=== PATIENT | male | born 1950 | race Caucasian/White ===

== ENCOUNTER → 2018-02-11 10:07 | Outpatient (CLI) | payer MEDICARE, SELFPAY ==
[2018-02-11 11:43] LABS: Hemoglobin A1c 8.2 % (4.2-6.3)
== END ==
PROVIDERS: Nurse Practitioner Family; Family Provider Family Medicine; PCP Family Medicine; Visit Provider Family Medicine
DX: E11.9 Type 2 diabetes mellitus without complications (principal)
CPT/HCPCS: 36415; 83036

== ENCOUNTER → 2018-05-05 11:06 | Outpatient (CLI) | payer MEDICARE, SELFPAY ==
[2018-05-05 12:29] LABS: Hemoglobin A1c 7.9 % (4.2-6.3)
== END ==
PROVIDERS: Family Provider Family Medicine; PCP Family Medicine; Visit Provider Family Medicine
DX: E11.9 Type 2 diabetes mellitus without complications (principal)
CPT/HCPCS: 36415; 83036

== ENCOUNTER → 2018-06-03 11:15 | Outpatient (CLI) | payer MEDICARE, SELFPAY ==
--- NOTE | 2018-06-02 11:40 | LES_PTH ---
PATIENT: KELSEY YOUSSEF LOC: [facility] U#:[id number] AGE/SX: 75/M ROOM: RE06/03/[address]: Dr. Behzad Pierce, : 1950 BED: DIS: SPEC #: [id number] RECD: 06/03/18 11:23 STATUS: JOSHUA BROOKS #: [id number] CHAD: 06/02/18 11:[address]: Behzad Pierce DEPT: SURGICAL PATHOLOGY RECD BY: Brenden Lemon Tissues: Skin of forearm, NOS Procedures: Surgery Specimen Level IV HEADER OPERATION: Shave biopsy PRE-OP DIAGNOSIS: Rule out basal cell cancer, squamous cell cancer TISSUE SUBMITTED: Left forearm MICROSCOPIC DIAGNOSIS Left forearm skin lesion, shave biopsy: Basal cell carcinoma, extending up to the deep margin of the specimen. Mild actinic keratosis and solar elastosis. SJ:gato 06/04/18 MICROSCOPIC DESCRIPTION Slides are reviewed. GROSS DESCRIPTION Received is one container labeled with the patient's name and not further designated. The specimen consists of a shave biopsy of hung-white skin measuring 1.3 x 0.7 x 0.1 cm. The specimen is inked and submitted entirely in one cassette. It will be serially sectioned at the time of embedding. / SJ:rg 06/03/18 TC:0 [facility]: [id number]
== END ==
PROVIDERS: Family Provider Family Medicine; PCP Family Medicine; Visit Provider Family Medicine
DX: C44.90 Unspecified malignant neoplasm of skin, unspecified (principal)
CPT/HCPCS: 88305

== ENCOUNTER → 2019-02-02 09:00 | Outpatient (CLI) | payer MEDICARE, SELFPAY ==
[2019-02-01 14:24] VITALS: BMI 30.6
[2019-02-02 12:40] LABS: Hematocrit 45.4 % (40-54); Mean Corpuscular Hgb 30.6 pg (27.0-32.0); Mean Corpuscular Volume 92.7 fL (80-94); Mean Platelet Vol. 11.7 fl (6.2-12.0); Platelet Count 277 K/mm3 (150-450); RBC Distribution Width CV 13.1 % (11.6-14.6); RBC Distribution Width SD 43.6 fl (35.1-43.9); White Blood Count 7.8 K/mm3 (4.4-11.0)
[2019-02-02 12:45] LABS: Scan Indicated on CBC? Y/N NO
[2019-02-02 13:19] LABS: ALB/GLOB Ratio 1.1 RATIO (0.9-2.4); AST(SGOT) 9 U/L (15-37); Alanine Aminotransfer ALT/SGPT 26 U/L (16-61); Alkaline Phosphatase 62 U/L (45-117); Anion Gap 3 (5-15); BUN 17 mg/dL (7-18); BUN/Creat Ratio 18.9 RATIO (10-20); Calcium,Total 8.7 mg/dL (8.5-10.1); Chloride 101 mmol/L (98-107); Cholesterol 142 mg/dL (200); EST Glomerular Filtration Rate 89 mL/min (>60); Est Glom Filt Rate - Afr Amer 107 mL/min (>60); Globulin 3.5 g/dL (2.2-4.2); Glucose 185 mg/dL (74-106); High Density Lipoprotein 26 mg/dL; Potassium 4.2 mmol/L (3.5-5.1); Protein, Total 7.5 g/dL (6.4-8.2); Sodium Level 134 mmol/L (136-145); Triglycerides 203 mg/dL; Very Low Density Lipoprotein 41 mg/dL (5-40)
== END ==
PROVIDERS: Family Provider Family Medicine; PCP Family Medicine; Visit Provider Family Medicine
DX: I10 Essential (primary) hypertension (principal)
CPT/HCPCS: 36415; 80053; 80061; 85027

== ENCOUNTER → 2020-01-31 10:29 | Outpatient (CLI) | payer MEDICARE, SELFPAY ==
[2020-01-31 10:04] VITALS: BMI 30.2
[2020-01-31 12:41] LABS: ALB/GLOB Ratio 1.1 RATIO (0.9-2.4); AST(SGOT) 18 U/L (15-37); Alanine Aminotransfer ALT/SGPT 32 U/L (16-61); Albumin, Serum 4.2 g/dL (3.2-5.0); Alkaline Phosphatase 46 U/L (45-117); Anion Gap 5 (5-15); BUN 18 mg/dL (7-18); BUN/Creat Ratio 20.6 RATIO (10-20); Calcium,Total 9.5 mg/dL (8.5-10.1); Chloride 103 mmol/L (98-107); Cholesterol 186 mg/dL (200); Creatinine, Serum 0.87 mg/dL (0.70-1.30); EST Glomerular Filtration Rate 91 mL/min (>60); Est Glom Filt Rate - Afr Amer 110 mL/min (>60); Globulin 3.7 g/dL (2.2-4.2); Glucose 109 mg/dL (74-106); High Density Lipoprotein 29 mg/dL; Microalbumin,Random Urine 21.7 mg/L (NO RANGE EST.); Microalbumin:Creatinine Ratio 34.6 mg/g CRE (<30 mg/g CRE); Potassium 4.4 mmol/L (3.5-5.1); Protein, Total 7.9 g/dL (6.4-8.2); Sodium Level 138 mmol/L (136-145); Triglycerides 347 mg/dL; Very Low Density Lipoprotein 69 mg/dL (5-40)
== END ==
PROVIDERS: PCP Family Medicine; Referring Provider Family Medicine; Visit Provider Family Medicine
DX: E78.2 Mixed hyperlipidemia (principal); E11.9 Type 2 diabetes mellitus without complications
CPT/HCPCS: 36415; 80053; 80061; 82043; 82570

== ENCOUNTER → 2020-02-02 10:41 | Outpatient (CLI) | payer MEDICARE, SELFPAY ==
[2020-01-31 10:04] VITALS: BMI 30.2
--- NOTE | 2020-02-02 10:42 | RAD_ITS ---
STUDY: X-RAY - LEFT KNEE REASON FOR EXAM: Male, 69 years old. CHRONIC LEFT KNEE PAIN TECHNIQUE: 4 view(s) of the knee. COMPARISON: None. FINDINGS: The patient is status post medial hemiarthroplasty. Patient is status post medial hemiarthroplasty. Normal proximal tibiofibular articulation. Normal medial femorotibial compartment. Normal lateral femorotibial compartment. 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 Small joint effusion. RAD/Knee 4 or More Views IMPRESSION: Degenerative arthrosis. Status post medial hemiarthroplasty. Electronically Signed: Eliu Eduardo, at 15:58 EDT , Service support ,
== END ==
PROVIDERS: PCP Family Medicine; Referring Provider Family Medicine; Visit Provider Family Medicine
DX: M25.562 Pain in left knee (principal); G89.29 Other chronic pain
CPT/HCPCS: 73564

== ENCOUNTER → 2021-05-08 10:13 | Outpatient (CLI) | payer MEDICARE, SELFPAY ==
[2021-05-08 09:52] VITALS: BMI 30.1
[2021-05-08 12:28] LABS: Absolute Lymphocyte Count 2.02 X10^3/uL (0.83-4.51); Absolute Neutrophil Count 4.2 X10^3/uL (2.0-7.7); Basophil# 0.09 X10^3/uL; Basophil% 1.3 % (0-1); Eosinophils% 2.8 % (0-5); Hematocrit 45.9 % (40-54); Hemoglobin 14.6 g/dL (13.0-16.5); Lymphocyte # 2.02 X10^3/ul (0.83-4.51); Lymphocyte % 28.5 % (19-41); Mean Corp Hgb Conc 31.8 g/dL (32-36); Mean Corpuscular Hgb 30.1 pg (27.0-32.0); Mean Corpuscular Volume 94.6 fL (80-94); Mean Platelet Vol. 11.3 fl (6.2-12.0); Monocyte# 0.59 X10^3/uL; Monocyte% 8.3 % (0-10); NRBC Flagged by Analyzer 0 % (0-5); Neutrophil # 4.17 X10^3/uL (2.7-7.7); Platelet Count 273 K/mm3 (150-450); RBC Distribution Width CV 13.1 % (11.6-14.6); Red Blood Count 4.85 M/mm3 (4.6-6.2); White Blood Count 7.1 K/mm3 (4.4-11.0)
[2021-05-08 12:47] LABS: ALB/GLOB Ratio 1.2 RATIO (0.9-2.4); AST(SGOT) 11 U/L (15-37); Alanine Aminotransfer ALT/SGPT 21 U/L (16-61); Albumin, Serum 4.1 g/dL (3.2-5.0); Alkaline Phosphatase 52 U/L (45-117); Anion Gap 2 (5-15); BUN 12 mg/dL (7-18); BUN/Creat Ratio 12.9 RATIO (10-20); Calcium,Total 9.2 mg/dL (8.5-10.1); Chloride 103 mmol/L (98-107); Cholesterol 169 mg/dL (200); Creatinine, Serum 0.93 mg/dL (0.70-1.30); EST Glomerular Filtration Rate 85 mL/min (>60); Est Glom Filt Rate - Afr Amer 103 mL/min (>60); Globulin 3.5 g/dL (2.2-4.2); Glucose 92 mg/dL (74-106); Hemoglobin A1c 6.6 % (3.8-5.6); High Density Lipoprotein 31 mg/dL; Potassium 4.9 mmol/L (3.5-5.1); Protein, Total 7.6 g/dL (6.4-8.2); Sodium Level 140 mmol/L (136-145); Triglycerides 151 mg/dL; Very Low Density Lipoprotein 30 mg/dL (5-40)
== END ==
PROVIDERS: PCP Family Medicine; Referring Provider Physician Assistant; Visit Provider Physician Assistant
DX: E11.9 Type 2 diabetes mellitus without complications (principal); Z79.4 Long term (current) use of insulin
CPT/HCPCS: 36415; 80053; 80061; 83036; 85025

== ENCOUNTER 2022-01-22 09:56 | Outpatient (CLI) | payer MEDICARE, SELFPAY ==
[2022-01-22 12:26] LABS: ALB/GLOB Ratio 1.1 RATIO (0.9-2.4); AST(SGOT) 12 U/L (15-37); Alanine Aminotransfer ALT/SGPT 23 U/L (16-61); Alkaline Phosphatase 64 U/L (45-117); Anion Gap 7 (5-15); BUN 17 mg/dL (7-18); BUN/Creat Ratio 15.5 RATIO (10-20); Chloride 98 mmol/L (98-107); EST Glomerular Filtration Rate 70 mL/min (>60); Est Glom Filt Rate - Afr Amer 84 mL/min (>60); Globulin 3.8 g/dL (2.2-4.2); Glucose 186 mg/dL (74-106); Potassium 3.9 mmol/L (3.5-5.1); Protein, Total 7.8 g/dL (6.4-8.2); Sodium Level 135 mmol/L (136-145)
[2022-01-22 12:33] LABS: Hemoglobin A1c 9.2 % (3.8-5.6)
== END 2022-01-22 23:59 | disposition home or self-care (01) ==
LOC: BIMLAB 09:59
PROVIDERS: PCP Family Medicine; Referring Provider Family Medicine; Visit Provider Family Medicine
DX: E11.9 Type 2 diabetes mellitus without complications (principal); Z79.4 Long term (current) use of insulin
CPT/HCPCS: 36415; 80053; 83036

== ENCOUNTER → 2023-04-22 | Outpatient (CLI) | payer MEDICARE, SELFPAY ==
[2023-04-22 17:14] LABS: ALB/GLOB Ratio 1.2 RATIO (0.9-2.4); AST(SGOT) 9 U/L (15-37); Alanine Aminotransfer ALT/SGPT 21 U/L (16-61); Albumin, Serum 4.1 g/dL (3.2-5.0); Alkaline Phosphatase 71 U/L (45-117); Anion Gap 5 (5-15); BUN 13 mg/dL (7-18); BUN/Creat Ratio 13.5 RATIO (10-20); Calcium,Total 9.2 mg/dL (8.5-10.1); Chloride 100 mmol/L (98-107); Cholesterol 162 mg/dL (200); Creatinine, Serum 0.96 mg/dL (0.70-1.30); EST Glomerular Filtration Rate 81 mL/min (>60); Est Glom Filt Rate - Afr Amer 98 mL/min (>60); Globulin 3.4 g/dL (2.2-4.2); Glucose 269 mg/dL (74-106); High Density Lipoprotein 29 mg/dL; Potassium 4.4 mmol/L (3.5-5.1); Protein, Total 7.5 g/dL (6.4-8.2); Sodium Level 135 mmol/L (136-145); Triglycerides 323 mg/dL; Very Low Density Lipoprotein 65 mg/dL (5-40)
[2023-04-22 17:47] LABS: Hemoglobin A1c 10.3 % (3.8-5.6)
== END | disposition home or self-care (01) ==
LOC: BIMLAB 15:42
PROVIDERS: PCP Family Medicine; Visit Provider Family Medicine
DX: E11.9 Type 2 diabetes mellitus without complications (principal); Z79.4 Long term (current) use of insulin
CPT/HCPCS: 36415; 80053; 80061; 83036

== ENCOUNTER 2023-06-21 09:10 | Inpatient (IN) | payer MEDICARE, SELFPAY ==
[2023-06-21] VITALS (12 sets, daily range): BP systolic 119–162; BP diastolic 55–107; PULSE 90–109; RESP 18–24; TEMP 35.7–37.1; O2SAT 90–97; BMI 29.2; BMI 28.0
--- NOTE | 2023-06-21 09:42 | EKG12_ITS ---
Test Reason : SOB Blood Pressure : / mmHG Vent. Rate : 087 BPM Atrial Rate : 087 BPM P-R Int : 142 ms QRS Dur : 096 ms QT Int : 344 ms P-R-T Axes : 016 -33 036 degrees QTc Int : 413 ms Normal sinus rhythm Left axis deviation Abnormal ECG Confirmed by OLIVIA ROLDAN, RAMON ([id number]), editor newspaper YEMI BIGGS ([id number]) on 06/22/2023 1:26:52 PM Referred By: Confirmed By:RAMON BAKER MD
[2023-06-21] MEDS: Ipratropium/Albuterol Sulfate 3 ML AMPUL.NEB INHALATION ×3 (09:54→19:10)
[2023-06-21] MEDS: Albuterol 2.5 MG/3 ML VIAL.NEB. INHALATION (09:54)
[2023-06-21 10:10] LABS: Absolute Lymphocyte Count 2.17 X10^3/uL (0.83-4.51); Basophil# 0.14 X10^3/uL; Basophil% 1.7 % (0-1); Eosinophil# 0.29 X10^3/uL; Eosinophils% 3.5 % (0-5); Hematocrit 42.2 % (40-54); Hemoglobin 14.1 g/dL (13.0-16.5); Lymphocyte # 2.17 X10^3/ul (0.83-4.51); Lymphocyte % 26.3 % (19-41); Mean Corp Hgb Conc 33.4 g/dL (32-36); Mean Corpuscular Hgb 30.7 pg (27.0-32.0); Mean Corpuscular Volume 91.7 fL (80-94); Mean Platelet Vol. 10.6 fl (6.2-12.0); Monocyte# 0.64 X10^3/uL; Monocyte% 7.8 % (0-10); NRBC Flagged by Analyzer 0 % (0-5); Neutrophil # 4.99 X10^3/uL (2.7-7.7); Neutrophil % 60.5 % (47-70); Platelet Count 279 K/mm3 (150-450); RBC Distribution Width CV 12.4 % (11.6-14.6); RBC Distribution Width SD 41.3 fl (35.1-43.9); White Blood Count 8.3 K/mm3 (4.4-11.0)
--- NOTE | 2023-06-21 10:11 | RAD_ITS ---
STUDY: X-RAY CHEST REASON FOR EXAM: Male, 73 years old. Fever and cough TECHNIQUE: 2 AP portable views COMPARISON: None. FINDINGS: EKG leads overlie the chest The lungs are clear and expanded. There is no demonstrated pleural abnormality. Normal size heart. Normal mediastinum and marv. Normal visualized pulmonary arteries. Normal visualized aortic arch and descending thoracic aorta. There are diffuse degenerative changes of the visualized thoracic spine. Normal visualized ribs, clavicles, and shoulders. There is no demonstrated abnormality of the visualized soft tissue structures of the upper abdomen. RAD/Chest 1 View (Portable) IMPRESSION: No acute pulmonary process Electronically Signed: Riley Sams MD at 10:25 EDT ,
[2023-06-21 10:18] LABS: D-Dimer Quantitative (DVT/PE) 0.36 FEU/ug/m (0.27-0.49)
[2023-06-21 10:19] LABS: Anion Gap 5 (5-15); BUN 13 mg/dL (7-18); BUN/Creat Ratio 12.5 RATIO (10-20); Calcium,Total 8.9 mg/dL (8.5-10.1); Chloride 102 mmol/L (98-107); Creatinine, Serum 1.04 mg/dL (0.70-1.30); EST Glomerular Filtration Rate 74 mL/min (>60); Est Glom Filt Rate - Afr Amer 90 mL/min (>60); Estimated Creatinine Clearance 67.36 ml/min; Glucose 339 mg/dL (74-106); Potassium 4.1 mmol/L (3.5-5.1); Sodium Level 136 mmol/L (136-145)
[2023-06-21] MEDS: MethylPREDNISolone 125 MG/2 ML Vial IV (10:19)
--- NOTE | 2023-06-21 10:34 | ED.VIS.DYS ---
HPI History of Present Illness Chief Complaint: Shortness of Breath Narrative Narrative: 73-year-old male with history of tobacco use presenting with shortness of breath for 3 days. He states he really does not smoke that much anymore. He states he is unsure if he was diagnosed with COPD. He used to have albuterol at home but does not. He still smokes occasionally. He is also been cleaning out his basement which is very trav. Patient states that his shortness of breath is worse than usual. He states that for the last 3 days when he lays down to sleep he will wake up and just a few minutes in a panic. He states he has not had a good night sleep. No history of sleep apnea. No history of CHF. He is not having fever or chills. [facility] Medical History Combined hyperlipidemia Emphysema of lung Hypertension Neuropathy Skin cancer Type 2 diabetes mellitus Home Medications venlafaxine 75 mg capsule,extended release 24 hr 75 mg PO QDAY #90 caps 05/29/22 [Rx Last Taken Unknown] lisinopril 10 mg-hydrochlorothiazide 12.5 mg tablet 1 tab PO .one daily #90 tabs 07/30/22 [Rx Last Taken Unknown] metformin 500 mg tablet,extended release 24 hr 500 mg PO QDAY #90 tabs 07/30/22 [Rx Last Taken Unknown] nifedipine 30 mg tablet,extended release 30 mg PO QDAY #90 tabs 07/30/22 [Rx Last Taken Unknown] gabapentin 400 mg capsule 400 mg PO .QID #360 caps 04/22/23 [Rx Last Taken Unknown] insulin glargine 100 unit/mL (3 mL) subcutaneous pen (Lantus Solostar U-100 Insulin) 30 unit (0.3 mL) subcut QHS #15 mL 05/12/23 [Rx Last Taken Unknown] Allergy/AdvReac Type Severity Reaction Status Date / Time No Known Allergies Allergy Verified 04/22/23 15:22 Family History Father Heart disease Mother Heart disease Surgical History History of carpal tunnel release History of cataract Social History Smoking Status: Former smoker alcohol intake: never substance use type: does not use what type of physical activity do you participate in: none ROS ROS ED Constitutional Constitutional ED: Denies chills, fever(s) or sweats Eyes Eyes: Denies blurry vision or change in vision ENT ENT ED: Denies ear pain or sore throat Cardiovascular Cardiovascular: Reports orthopnea; Denies chest pain, palpitations or racing heartbeat Respiratory/Chest Respiratory/Chest: Reports dyspnea, dyspnea on exertion and orthopnea; Denies cough or sputum Gastrointestinal Gastrointestinal: Denies abdominal pain, constipation, diarrhea, nausea or vomiting Genitourinary Genitourinary ED: Denies dysuria, hematuria or urinary frequency Musculoskeletal Musculoskeletal: Denies arthralgias, myalgias or neck pain Integumentary Denies abscess, Abrasions or rash Neurologic Neurologic: Denies headache(s), paresthesias or weakness Psychiatric Psychiatric: Denies anxiety, depression, suicidal ideation or suicidal thoughts Endocrine Endocrinology: Denies polydipsia or polyuria EXAM Physical Exam Const Vital Signs: 06/21/23 09:11 06/21/23 09:55 06/21/23 10:06 Temperature 96.2 F L Temperature Source Temporal Pulse Rate 99 90 Respiratory Rate 24 H 19 H Respiratory Effort Normal Non-Labored Respiratory Depth Normal Respiratory Pattern Tachypnea Normal Blood Pressure 158/107 H Blood Pressure Mean 124 Pulse Ox 90 Oxygen Delivery Method Room Air Room Air Oxygen Flow Rate (L/min) 06/21/23 10:11 06/21/23 11:17 Temperature Temperature Source Pulse Rate 98 93 Respiratory Rate 24 H 18 Respiratory Effort Respiratory Depth Respiratory Pattern Blood Pressure 138/75 H 148/76 H Blood Pressure Mean 96 100 Pulse Ox 93 93 Oxygen Delivery Method Room Air Nasal Cannula Oxygen Flow Rate (L/min) 2 Positive well nourished General Appearance ED: NAD HEENT Reports moist mucous membranes Eyes PERRL and EOMs intact bilaterally Neck no lymphadenopathy Resp normal respiratory effort and clear to auscultation bilaterally Auscultation: Negative for rales, rhonchi or wheezes Cardio regular rate and regular rhythm Neuro oriented x3 and CN's II-XII intact bilaterally Sensorium / Orientation: alert Psych mental status grossly normal Skin no wounds MDM MDM MDM Narrative Medical decision making narrative: Patient presenting with shortness of breath for 3 days. He is describing either orthopnea or sleep apnea. Denies any chest pain but does have shortness of breath which is worse with exertion. Patient states is not a smoker recluse most of cigarettes. Patient is wheezing on examination. Differential includes, pneumonia, COPD exacerbation, CHF, dehydration, electrolyte abnormalities, PE. CBC was obtained to assess for blood cell count, hemoglobin and platelets and this was normal. BMP shows normal renal function and electrolytes. High-sensitivity count is 10. EKG on my interpretation was a normal sinus rhythm with a ventricular rate of 87 bpm without sign of ischemic change or ectopy. Chest x-ray on my interpretation showed no acute cardiopulmonary process. Patient was treated with Solu-Medrol 125 and breathing treatments. Afterwards he was ambulated and dropped to 87% on room air and was quite symptomatic and dizzy while walking. Given this I opted to have him admitted for further treatment. Spoke with hospitalist for admission. Impression: 1. COPD exacerbation, 1. Hypoxia Lab Data Attestation: I reviewed the patient's lab results. Labs: Laboratory Results - last 24 hr 06/21/23 09:27 WBC 8.3 RBC 4.60 Hgb 14.1 Hct 42.2 MCV 91.7 MCH 30.7 MCHC 33.4 RDW Std Deviation 41.3 RDW Coeff of María 12.4 Plt Count 279 MPV 10.6 Immature Gran % (Auto) 0.200 Neut % (Auto) 60.5 Lymph % (Auto) 26.3 [place] % (Auto) 7.8 Eos % (Auto) 3.5 Baso % (Auto) 1.7 H Absolute Neuts (auto) 5.0 Absolute Lymphs (auto) 2.17 Nucleated RBC % 0 D-Dimer Quant (PE/DVT) 0.36 Sodium 136 Potassium 4.1 Chloride 102 Carbon Dioxide 29.0 Anion Gap 5 BUN 13 Creatinine 1.04 Estim Creat Clear Calc 67.36 Est GFR (MDRD) Af Amer 90 Est GFR (MDRD) Non-Af 74 BUN/Creatinine Ratio 12.5 Glucose 339 H Calcium 8.9 Troponin I High Sens 10 B-Natriuretic Peptide 20.1 Radiography Diagnostic Testing: Clinical Impression(s) from Imaging Studies Chest X-Ray 06/21/23 10:11 IMPRESSION: No acute pulmonary process Electronically Signed: Riley Sams MD at 10:25 EDT , Discharge Plan Triage Chief Complaint: Shortness of Breath ED Provider: Thierry León Dx/Rx/DC Orders Prescriptions: No Action lisinopril-hydrochlorothiazide 10-12.5 mg tablet 1 tab PO .one daily Qty: 90 3RF metformin 500 mg tablet extended release 24 hr 500 mg PO QDAY Qty: 90 3RF nifedipine 30 mg tablet extended release 30 mg PO QDAY Qty: 90 3RF gabapentin 400 mg capsule 400 mg PO .QID Qty: 360 1RF venlafaxine 75 mg capsule,extended release 24hr 75 mg PO QDAY Qty: 90 1RF Lantus Solostar U-100 Insulin 100 unit/mL (3 mL) insulin pen 30 unit SC QHS Qty: 15 3RF Primary Care Provider: Behzad Pierce Referrals: Behzad Pierce, DO [Primary Care Provider] -
[2023-06-21 10:41] LABS: BNP,B-Type NATRIURETIC PEPTIDE 20.1 pg/mL (0-100)
[2023-06-21 11:03] LABS: Troponin-I HS 10 pg/mL (3.0-78.0)
[2023-06-21 11:46] LABS: Bedside Glucose 347 mg/dL (74-106)
--- NOTE | 2023-06-21 13:16 | HP.PCM.HOS_ITS ---
HPI - General General Date of Admission: 06/21/23 Date of Service: 06/21/23 Chief Complaint: Shortness of breath, cough productive of clear phlegm HPI Narrative KELSEY YOUSSEF, is a 73 M who presents to the emergency room at [facility] with a chief complaint of increased shortness of breath over the last 3 days along with cough productive of clear phlegm. Patient has a history of emphysema-he is not aware of this diagnosis although it does show up in his medical record in 2018. Patient has not smoked in approximately 15 months. Patient denies any fevers or chills, he denies any green or yellow sputum production. Patient told nursing that he has trouble swallowing over the last several days. Work-up in the emergency room included a CBC which was unremarkable, chest x-ray showed no evidence of infiltrates, chemistry panel was remarkable for glucose of 339. Patient required 2 L of oxygen on ambulation in the emergency room to maintain his pulse ox above 90%. On examination, patient has coarse wheezing throughout both lung villalobos and a dry persistent cough. Patient will be admitted to [place] [id number] for exacerbation of COPD, I will obtain a viral panel, he will be placed on aerosol treatments and IV Solu-Medrol. Patient will be seen by speech therapy concerning his swallowing difficulties. [facility] Medical History (Updated 06/21/23 @ 13:[address] William Ruffin, ) Combined hyperlipidemia Emphysema of lung Hearing loss, left Hearing loss, right Hypertension Neuropathy Skin cancer Type 2 diabetes mellitus Home Medications venlafaxine 75 mg capsule,extended release 24 hr 75 mg PO QDAY ask pcp #90 caps 05/29/22 [Rx Last Taken Unknown] lisinopril 10 mg-hydrochlorothiazide 12.5 mg tablet 1 tab PO .one daily ask pcp #90 tabs 07/30/22 [Rx Last Taken Unknown] metformin 500 mg tablet,extended release 24 hr 500 mg PO QDAY dm #90 tabs 07/30/22 [Rx Last Taken Unknown] nifedipine 30 mg tablet,extended release 30 mg PO QDAY ask pcp #90 tabs 07/30/22 [Rx Last Taken Unknown] gabapentin 400 mg capsule 400 mg PO .QID ask pcp #360 caps 04/22/23 [Rx Last Taken Unknown] insulin glargine 100 unit/mL (3 mL) subcutaneous pen (Lantus Solostar U-100 Insulin) 40 unit subcut QHS dm 06/21/23 [History Last Taken Unknown] Allergy/AdvReac Type Severity Reaction Status Date / Time No Known Allergies Allergy Verified 04/22/23 15:22 Family History Father Heart disease Mother Heart disease Surgical History History of carpal tunnel release History of cataract Social History Smoking Status: Former smoker alcohol intake: never substance use type: does not use what type of physical activity do you participate in: none ROS Constitutional Constitutional: Denies anorexia, change in weight, chills, fatigue, fever(s), malaise, night sweats or weakness Eyes Eyes: Denies blurry vision, change in eye color, change in vision, discharge from eye(s) or eye pain Cardiovascular Cardiovascular: Reports dyspnea on exertion; Denies chest pain, claudication, edema or palpitations Respiratory/Chest Respiratory/Chest: Reports cough, dyspnea, productive cough and shortness of breath with exertion; Denies hemoptysis or shortness of breath at rest Gastrointestinal Gastrointestinal: Reports other Details: Difficulty swallowing x3 days ; Denies abdominal pain, constipation, diarrhea, hematemesis, hematochezia, melena, nausea or vomiting Genitourinary Genitourinary: Denies dysuria, hematuria, urinary frequency, urinary hesitancy, urinary incontinence or urinary urgency Musculoskeletal Musculoskeletal: Denies back pain, joint pain, joint stiffness, joint swelling, myalgias or neck pain Neurologic Neurologic: Denies abnormal gait, abnormal speech, confusion, disequilibrium, dizziness, focal weakness, headache(s), loss of vision, numbness, other visual disturbances, paresthesias, syncope or tingling Psychiatric Psychiatric: Denies anxiety, cognitive impairment, depression, irritability, mood swings or suicidal ideation Endocrine Endocrinology: Denies change in body appearance, cold intolerance, excessive sweating, heat intolerance, polydipsia or polyuria Hematologic/Lymphatic Hematologic/Lymphatic: Denies none, anemia, easy bleeding, easy bruising or lymphadenopathy Allergic/Immunologic Allergic/Immunologic: Denies rhinitis, urticaria, eczemia or asthma Vital Signs Vital Signs Vital Signs: 06/21/23 09:11 06/21/23 09:55 06/21/23 10:06 Temperature 96.2 F L Temperature Source Temporal Pulse Rate 99 90 Respiratory Rate 24 H 19 H Respiratory Effort Normal Non-Labored Respiratory Depth Normal Respiratory Pattern Tachypnea Normal Blood Pressure 158/107 H Blood Pressure Mean 124 Blood Pressure Source Blood Pressure Position Blood Pressure Location Pulse Ox 90 Oxygen Delivery Method Room Air Room Air Oxygen Flow Rate (L/min) 06/21/23 10:11 06/21/23 11:17 06/21/23 11:47 Temperature 97.7 F L Temperature Source Temporal Pulse Rate 98 93 106 H Respiratory Rate 24 H 18 22 H Respiratory Effort Respiratory Depth Respiratory Pattern Blood Pressure 138/75 H 148/76 H 119/86 H Blood Pressure Mean 96 100 97 Blood Pressure Source Blood Pressure Position Blood Pressure Location Pulse Ox 93 93 90 Oxygen Delivery Method Room Air Nasal Cannula Nasal Cannula Oxygen Flow Rate (L/min) 2 06/21/23 12:33 06/21/23 12:33 Temperature 98.3 F Temperature Source Oral Pulse Rate 104 H Respiratory Rate 20 H Respiratory Effort Respiratory Depth Respiratory Pattern Blood Pressure 162/97 H Blood Pressure Mean 118 Blood Pressure Source Monitor Blood Pressure Position Semi-Fowlers Blood Pressure Location Right Arm Pulse Ox 93 Oxygen Delivery Method Nasal Cannula Nasal Cannula Oxygen Flow Rate (L/min) 2 2 Weight Weight: 93.894 kg Body Mass Index (BMI) 28.0 Physical Exam Const alert, oriented x3, no apparent distress and healthy appearing Constitutional Narrative: Patient appears his stated age General Appearance: cooperative, well kempt and well developed Orientation / Consciousness: awake, oriented to person, oriented to place and oriented to time HEENT normocephalic, head/scalp atraumatic, hearing grossly normal bilaterally and moist oral mucous membranes Eyes PERRL, EOMs intact bilaterally and conjunctivae normal Neck supple, no JVD, thyroid normal and no carotid bruits General: trachea midline Resp normal respiratory effort, no retractions and no use of accessory muscles Resp Narrative: Patient has high-pitched expiratory wheezes throughout both lung villalobos Auscultation: wheezes throughout; Negative for rales or rhonchi Cardio regular rate, regular rhythm, S1 normal heart sound, S2 normal heart sound, no murmurs, no rub and no gallops GI normal to inspection, nondistended, normoactive bowel sounds, soft to palpation, non-tender and non-distended Extremity no clubbing, cyanosis or edema Skin no rashes or lesions noted General Skin Exam: no breakdown Neuro oriented x3, CN's II-XII intact bilaterally, moves all extremities, no focal motor deficits and no sensory deficits noted Sensorium / Orientation: awake, alert, oriented to person, oriented to place and oriented to time Speech: speech normal Psych affect normal Results Lab / Micro Data 06/21/23 09:27 06/21/23 09:27 Labs: Laboratory Results - last 24 hr 06/21/23 09:27: WBC 8.3, RBC 4.60, Hgb 14.1, Hct 42.2, MCV 91.7, MCH 30.7, MCHC 33.4, RDW Std Deviation 41.3, RDW Coeff of María 12.4, Plt Count 279, MPV 10.6, Immature Gran % (Auto) 0.200, Neut % (Auto) 60.5, Lymph % (Auto) 26.3, Chambers % (Auto) 7.8, Eos % (Auto) 3.5, Baso % (Auto) 1.7 H, Absolute Neuts (auto) 5.0, Absolute Lymphs (auto) 2.17, Nucleated RBC % 0, D-Dimer Quant (PE/DVT) 0.36, So dium 136, Potassium 4.1, Chloride 102, Carbon Dioxide 29.0, Anion Gap 5, BUN 13, Creatinine 1.04, Estim Creat Clear Calc 67.36, Est GFR (MDRD) Af Amer 90, Est GFR (MDRD) Non-Af 74, BUN/Creatinine Ratio 12.5, Glucose 339 H, Calcium 8.9, Troponin I High Sens 10, B-Natriuretic Peptide 20.1 06/21/23 11:16: POC Glucose 347 H Radiology Impression Chest X-Ray 06/21/23 10:11 IMPRESSION: No acute pulmonary process Electronically Signed: Riley Sams MD at 10:25 EDT , Assessment & Plan Assessment/Plan (1) Asthma exacerbation in COPD: PLAN: Plan 1. Exacerbation of COPD-possibly triggered by a viral illness-patient will be admitted to [facility] 3, he will receive aerosol treatments and IV Solu-Medrol, I will obtain a viral panel #2 hypoxia secondary to #1-patient's pulse ox will be monitored #3 dysphagia-etiology unclear, patient will be seen by speech therapy #4 type 2 diabetes-patient's blood sugars will be monitored, I expect his IV Solu-Medrol to increase his blood sugars #5 chronic depression-patient is on Effexor Total clinical time spent by myself addressing the patient's medical issues, reviewing all of his data, and collaborating with the patient's care team: 55 minutes Charges/Coding Visit Charges Inpatient E&M: 82336 Init Hosp L2
[2023-06-21] MEDS: Gabapentin 400 MG Capsule PO ×3 (14:07→21:11)
[2023-06-21] MEDS: 0.9% Saline Lock 10 ML Syringe IV (14:49)
[2023-06-21] MEDS: guaiFENesin/Codeine 5 ML UDC 10 ML PO (14:52)
[2023-06-21] MEDS: hydrOXYzine PAM 25 MG Capsule 50 MG PO (16:11)
[2023-06-21 16:40] LABS: Bedside Glucose > 500 mg/dL (74-106)
[2023-06-21] MEDS: Insulin Lispro 100 UNIT/ML INSULN.PEN 16 UNIT SC (17:09)
[2023-06-21] MEDS: Insulin Glargine-YFGN 100 UNIT/ML Pen 20 UNIT SC (17:10)
[2023-06-21] MEDS: Budesonide Respules 0.5 MG/2 ML AMPUL.NEB. INHALATION (19:10)
[2023-06-21] MEDS: Insulin Lispro 100 UNIT/ML INSULN.PEN SC (21:00)
[2023-06-21] MEDS: Heparin Injection (Vial) 5,000 UNIT/ML VIAL 5000 UNIT SC (21:06)
[2023-06-21] MEDS: Insulin Glargine-YFGN 100 UNIT/ML Pen 35 UNIT SC (21:09)
[2023-06-22] VITALS (7 sets, daily range): BP systolic 112–140; BP diastolic 53–71; PULSE 78–97; RESP 18–20; TEMP 36.6–37.2; O2SAT 93–97
[2023-06-22] MEDS: Insulin Lispro 100 UNIT/ML INSULN.PEN SC ×4 (06:36→22:03)
[2023-06-22 06:50] LABS: Bedside Glucose 250 mg/dL (74-106)
--- NOTE | 2023-06-22 07:18 | PCM.PN.HOSP ---
Reason for Visit Reason for Visit: Diagnoses Chronic obstructive pulmonary disease with (acute) exacerbation (06/21/23) Unspecified asthma with (acute) exacerbation (06/21/23) Subjective Subjective 73-year-old gentleman admitted with progressive shortness of breath diagnosed with COPD with acute exacerbation Objective Data Objective Data Vital Signs: Vital Signs Temp Pulse Resp BP Pulse Ox O2 Del Method O2 Flow Rate 98.4 F 97 18 140/56 H 94 Room Air 2 06/22/23 02:20 06/22/23 02:20 06/22/23 02:20 06/22/23 02:20 06/22/23 02:20 06/22/23 02:20 06/21/23 18:00 Oxygen Flow Rate (L/min) 2 Oxygen Delivery Method Room Air Weight: 93.894 kg Body Mass Index (BMI) 28.0 Intake & Output: Intake and Output for Last 24 Hours 06/20/23 06/21/23 06/22/23 23:59 23:59 23:59 Intake Total 480 / 1280 1400 / 1400 Balance 480 / 1280 1400 / 1400 Lab / Micro Data 06/21/23 09:27 06/21/23 09:27 Labs: Laboratory Results - last 24 hr 06/21/23 09:27: WBC 8.3, RBC 4.60, Hgb 14.1, Hct 42.2, MCV 91.7, MCH 30.7, MCHC 33.4, RDW Std Deviation 41.3, RDW Coeff of María 12.4, Plt Count 279, MPV 10.6, Immature Gran % (Auto) 0.200, Neut % (Auto) 60.5, Lymph % (Auto) 26.3, [place] % (Auto) 7.8, Eos % (Auto) 3.5, Baso % (Auto) 1.7 H, Absolute Neuts (auto) 5.0, Absolute Lymphs (auto) 2.17, Nucleated RBC % 0, D-Dimer Quant (PE/DVT) 0.36, Sodium 136, Potassium 4.1, Chloride 102, Carbon Dioxide 29.0, Anion Gap 5, BUN 13, Creatinine 1.04, Estim Creat Clear Calc 67.36, Est GFR (MDRD) Af Amer 90, Est GFR (MDRD) Non-Af 74, BUN/Creatinine Ratio 12.5, Glucose 339 H, Calcium 8.9, Troponin I High Sens 10, B-Natriuretic Peptide 20.1 06/21/23 11:16: POC Glucose 347 H 06/21/23 16:18: POC Glucose > 500 H* 06/22/23 06:32: POC Glucose 250 H Micro: Microbiology 06/21/23 13:20 Mucosa - Nasopharyngeal Respiratory Panel (PCR) - Final Radiography Diagnostic Testing: Radiology Impression Chest X-Ray 06/21/23 10:11 IMPRESSION: No acute pulmonary process Electronically Signed: Riley Sams MD at 10:25 EDT , Physical Exam Narrative GENERAL: cooperative HEENT: Atraumatic; normocephalic EYES; Anicteric, Normal Conjunctiva NECK; supple, normal thyroid, RESPIRATORY: Diminished to auscultation CARDIOVASCULAR: Regular S1 S2, GI: soft, normoactive bowel sounds, : No Renal angle tenderness; EXTREMITIES: No edema, no clubbing, MUSCULOSKELETAL: no muscle wasting NEURO: Awake; no lateralizing signs. SKIN: No Rash PSYCH; Flat affect Assessment & Plan Assessment/Plan (1) Asthma exacerbation in COPD: PLAN: Plan 73-year-old gentleman admitted with progressive shortness of breath diagnosed with COPD with acute exacerbation 1. COPD with acute exacerbation ? Admitted to regular nursing floor managed with bronchodilator treatments in addition to systemic steroid and supplemental oxygen 2. Acute hypoxia secondary to COPD with acute exacerbation 2. Dysphagia ? Consult placed to speech therapy 4. Diabetes mellitus type II -patient's oral hypoglycemics held. Placed on long acting insulin, Accu-Cheks a.c. and at bedtime and covered with sliding scale insulin 5. Depression ? Patient is on Effexor 6. Hypertension - Blood pressure controlled, home medications continued with dose adjustment as needed 7. DVT prophylaxis ? SC heparin Time spent in the patient's overall evaluation,decision-making process, review of diagnostic data, adjustment of management, discussion with other providers, nursing nursing and ancillary staff involved in patient's care documentation, 35 Minutes Charges/Coding Visit Charges Inpatient E&M: 56679 Subs Hosp L2
[2023-06-22] MEDS: Ipratropium/Albuterol Sulfate 3 ML AMPUL.NEB INHALATION ×2 (07:22→19:54)
[2023-06-22] MEDS: Budesonide Respules 0.5 MG/2 ML AMPUL.NEB. INHALATION ×2 (07:23→19:54)
[2023-06-22] MEDS: metFORMIN (XR) 500 MG Tablet PO (08:01)
--- NOTE | 2023-06-22 10:28 | SP.MBSS_ITS ---
Modified Barium Swallow Patient Information Study Date: 06/22/23 Study Time: 10:00 Direct Billable Minutes: 51 Total Minutes procedure & reportin Diagnosis: COPD J44.9, HTN I10 Referring Physician: Benito Kebede Reason for Referral: Objectively assess swallow function, assess risk for aspiration, and determine recommendations for least restrictive diet textures and compensatory strategies to improve safety of swallow. Medical History: Raúl Potter is a 73-year-old male with a PMH of Combined hyperlipidemia, Emphy sema of lung, Hearing loss, HTN, neuropathy, skin cancer, and Type 2 diabetes mellitus. See PMH in the H&P for full report. Patient presented to the emergency room at [facility] on 06/21/23 with a chief complaint of increased shortness of breath over the last 3 days along with cough productive of clear phlegm. Patient has a history of emphysema-he is not aware of this diagnosis although it does show up in his medical record in 2018. Patient has not smoked in approximately 15 months. Patient denies any fevers or chills, he denies any green or yellow sputum production. Patient told nursing that he has trouble swallowing over the last several days. Work-up in the emergency room included a CBC which was unremarkable, chest x-ray showed no evidence of infiltrates, chemistry panel was remarkable for glucose of 339. Patient required 2 L of oxygen on ambulation in the emergency room to maintain his pulse ox above 90%. On examination, patient has coarse wheezing throughout both lung villalobos and a dry persistent cough. Patient will be admitted to [place] [address] for exacerbation of COPD, I will obtain a viral panel, he will be placed on aerosol treatments and IV Solu-Medrol. Patient will be seen by speech therapy concerning his swallowing difficulties. Patient evaluated by speech therapy on 06/22/23 and recommended to continue current diet ordered, and plan for future MBSS due to overt s/s of aspiration. Current Diet Ordered: Regular Textures, Thin Liquids Dentition: Upper Dentures Respiratory Status: Oxygenating on 2L/M nasal cannula Penetration-Aspiration Scale Penetration-Aspiration Scale: OBJECTIVE ASSESSMENT OF SWALLOW FUNCTION (QUANTITATIVE ? PER TRIAL): PENETRATION / ASPIRATION SCALE (MONET): 1 = does not enter airway 2 = enters airway/above vocal folds/ejected 3 = enters airway/above vocal folds/not ejected 4 = enters airway/contacts vocal folds/ejected 5 = enters airway/contacts vocal folds/not ejected 6 = enters airway/below vocal folds/ejected 7 = enters airway/below vocal folds/not ejected despite effort 8 = enters airway/below vocal folds/no effort VIDEOFLOROSCOPIC SCALE SCORE (MONET): Grade I = aspiration of material that has penetrated into the laryngeal vestibule, intact cough reflex Grade II = aspiration < 10 % of the bolus, intact cough reflex Grade III = aspiration of < 10 % of the bolus, reduced cough reflex or aspiration of > 10 % of the bolus, intact cough reflex Grade IV = aspiration of > 10 % of the bolus, reduced cough reflex Penetration-Aspiration Scale Score Thin Liquid via teaspoon: Result: 2= enter airway/above vocal folds/ejected Comment: Trace penetration Thin Liquid via teaspoon Trial 2: Result: 1= does not enter airway Thin Liquid via large cup sip : Result: 1= does not enter airway [place] Thick Liquid via large cup sip : Result: 1= does not enter airway Pudding via tsp w/esophageal screen : Result: 1= does not enter airway 1/2 Cookie: Result: 1= does not enter airway Thin Liquid via large sequential straw sips: Result: 1= does not enter airway Oral Phase Labial Seal: Interlabial escape, no progression to anterior lip Tongue Control During Bolus Hold: Posterior escape of greater than half of bolus Bolus Preparation/Mastication: Timely and efficient chewing and mashing Bolus Transport/Lingual Motion: Delayed initiation of tongue motion Oral Residue: Trace residue lining oral structures Pharyngeal Phase Initiation of Pharyngeal Swallow: Bolus head in pyriforms Soft Palate Elevation: Trace column of contrast/air between soft palate and pharyngeal wall Laryngeal Elevation: Comp. Superior move thyroid cart w/comp. apprx arytenoid cart-epig pet Anterior Hyoid Excursion: Complete anterior movement Epiglottic Movement: Complete inversion Laryngeal Vestibule Closure at Height of Swallow: Incomplete; narrow column of air/contrast in laryngeal vestibule Pharyngeal Stripping Wave: Present - diminished Pharyngoesophageal Segment Opening: Parital distension and partial duration; parital obstruction of flow Tongue Base Retraction: Wide column of contrast between tongue base & post. pharyngeal wall Pharyngeal Residue: Collection of residue within or on pharyngeal structures Esophageal Phase Esophageal Clearance: Complete clearance Diagnosis/Impression Diagnosis: Mild Oropharyngeal Dysphagia (R13.12) Impression: The oral phase is primarily marked by... -Decreased bolus control with >1/2 of the bolus spilling posteriorly to the pyriforms prior to swallow onset observed with thin liquids especially. -Delayed tongue motion for A-P transport -Mild oral residue after the swallow, which mostly cleared with occasional use of independent initiation of multiple swallows. The pharyngeal phase is primarily marked by... -Moderately decreased tongue base retraction, mildly decreased UES opening/duration, and decreased pharyngeal stripping wave with resulting moderate pharyngeal residues after the swallow. -Trace penetration of thin by tsp during one trial, which reliably ejected during the swallow. -No aspiration observed during the study. The esophageal phase is grossly within normal limits. Recommendations Diet: Regular Textures and Thin Liquids Compensatory Strategies: Small Bites, Small Sips, Slow Rate, Multiple Swallows, Alternate bites/solids and sips/liquids and Sitting upright Recommend Repeat Modified Barium Swallow: No Need for Skilled Speech Therapy Services: Yes Comment: Will recommend the patient for outpatient dysphagia therapy to address deficits in oropharyngeal swallow function. Will recommend the patient for oropharyngeal strengthening to improve lingual coordination, tongue base retraction, and duration of UES opening (e.g., Bernice, Lingual Resistance, and CTAR). The patient would benefit from thorough education regarding diet recommendations and recommended compensatory strategies. Education Completed: 1. Described result of evaluation., 2. Pt understands evaluation & agrees with goals and treatment plan. and 7. Pt requires further education on strategies & risks. Status Active ST Patient: Active Contact Information [facility] Speech Therapy:: Holland Burnette M.A. [employer]SEM[employer] MACHINE ADJUSTER Speech-Language Pathologist [facility] [address] [place] [address] [email or web address]
[2023-06-22] MEDS: NIFEdipine 30 MG Tablet PO (11:22)
[2023-06-22] MEDS: Lisinopril 10 MG Tablet PO (11:22)
[2023-06-22] MEDS: hydroCHLOROthiazide 12.5mg 12.5 MG PO (11:22)
[2023-06-22] MEDS: Glucerna Shake 120 ML LIQUID PO ×2 (11:22→17:43)
[2023-06-22] MEDS: Heparin Injection (Vial) 5,000 UNIT/ML VIAL 5000 UNIT SC ×2 (11:23→22:01)
[2023-06-22] MEDS: Insulin Glargine-YFGN 100 UNIT/ML Pen 35 UNIT SC ×2 (11:23→22:03)
[2023-06-22] MEDS: Venlafaxine XR 75 MG Capsule PO (11:23)
[2023-06-22] MEDS: Gabapentin 400 MG Capsule PO ×4 (11:27→22:11)
[2023-06-22 11:52] LABS: Bedside Glucose 306 mg/dL (74-106)
--- NOTE | 2023-06-22 13:40 | CASEMGMT ---
RODNEY LOVETT Discharge Planning Assessment: Face to Face with patient for initial transition planning/care coordination assessment. RODNEY LOVETT introduced self and role at [facility], pt alert, answering questions appropriately, sitting on edge of bed. Pt voices understanding and is agreeable to participating in assessment.? Care providers, pharmacy,?and demographics verified. ? Admitting Dx: COPD exac PCP: Stan Specialists: none Preferred Pharmacy: [facility] Insurance: [facility] Prescription Benefit:?yes LNOK: none. Pt states he does not have any family and does not wish to have anyone listed as his next of kin. Explained to pt the use case for having someone listed and pt states he doesn't want to bother anyone and to list Dr. Aurelia Prieto[facility]. Pt does not have Dr. Prieto's phone number. Living Arrangements: Pt lives alone in a three story home with a spiral staircase to the upper floors where his bedroom and bath are located. Pt states he takes his time with the stairs and denies any difficulty. Pt states he is independent with all ADLs including self care and household tasks. Transportation: Pt drives DME: TENS unit for his shoulder, pulse oximeter, and glucometer with supplies although admits he does not monitor his blood glucose regularly. SNF/HHC: pt denies any previous provider ? Plan: Pt plans to return home at discharge and denies any discharge needs at this time. Pt states he has a friend who he will call to transport him home. Discussed need for continued ST at discharge and pt is agreeable to outpatient PT. Will facilitate with hospitalist. Will continue to monitor and assist with further discharge needs as identified. Casandra Hall RN CM
[2023-06-22] MEDS: Acetaminophen 325 MG Tablet 650 MG PO (14:38)
[2023-06-22] MEDS: hydrOXYzine PAM 25 MG Capsule 50 MG PO (14:41)
[2023-06-22] MEDS: guaiFENesin/Codeine 5 ML UDC 10 ML PO (14:41)
[2023-06-22 16:04] LABS: Bedside Glucose 254 mg/dL (74-106)
--- NOTE | 2023-06-22 16:04 | CHAPLAIN ---
Type of Pastoral Visit _x__ Initial Visit ___ Follow-up Visit ___ On-call Visit ___ General Patient Visit ___ Spiritual Assessment ___ Family Conference ___ Bereavement ___ Rapid Response ___ Code Blue ___ Other (describe below) Pastoral Care Referral From _x__ Patient ___ Family ___ Nurse ___ Physician ___ Medical Parasitologist ___ Financial Sales Assistant ___ Other (describe below) Sacrament/Intervention _x__ Active listening ___ Anointing ___ Taoism ___ Bereavement ___ Communion _x__ Danni exploration ___ _x__ Life review _x__ Prayer ___ Reconciliation ___ Sacrament of Sick _x__ Supportive presence ___ Wedding ___ Other (describe below) Pastoral Comments patient was very welcoming and very expressive about his thoughts; pt expresses his philosophical and samaritan points of view; pt speaks of being samaritan but not identified with any adventist or local mormonism; pt speaks of gratitude for God who gave him a wonderful and blessed life; pt does not indicate support from family who are now and admits he lives alone; pt welcomes prayer and the presence of this production technician
[2023-06-22] MEDS: Calcium Carbonate 500 MG Tablet PO (18:43)
[2023-06-22 22:32] LABS: Bedside Glucose 165 mg/dL (74-106)
--- NOTE | 2023-06-23 00:16 | NURSING ---
Pt. reports that his IV was catching on things and so he removed it himself earlier. Site assessed. No bleeding noted. Pt states he does not want one and is on Heparin therapy. Dr. Wakefield notified- ok to d/c IV at this time.
[2023-06-23 02:00] VITALS: BP 118/67; PULSE 74; RESP 18; TEMP 36.8; O2SAT 94
[2023-06-23 06:41] LABS: Bedside Glucose 74 mg/dL (74-106)
[2023-06-23] MEDS: Ipratropium/Albuterol Sulfate 3 ML AMPUL.NEB INHALATION (06:46)
[2023-06-23] MEDS: Budesonide Respules 0.5 MG/2 ML AMPUL.NEB. INHALATION (06:46)
[2023-06-23 06:48] VITALS: PULSE 73; RESP 20; O2SAT 91
[2023-06-23 06:59] LABS: Absolute Neutrophil Count 5.2 X10^3/uL (2.0-7.7); Basophil# 0.07 X10^3/uL; Basophil% 0.7 % (0-1); Eosinophil# 0.25 X10^3/uL; Eosinophils% 2.6 % (0-5); Hematocrit 43.1 % (40-54); Hemoglobin 13.9 g/dL (13.0-16.5); Lymphocyte % 34.6 % (19-41); Mean Corp Hgb Conc 32.3 g/dL (32-36); Mean Corpuscular Volume 92.9 fL (80-94); Monocyte# 0.74 X10^3/uL; Monocyte% 7.8 % (0-10); NRBC Flagged by Analyzer 0 % (0-5); Neutrophil # 5.16 X10^3/uL (2.7-7.7); Neutrophil % 54.1 % (47-70); Platelet Count 256 K/mm3 (150-450); RBC Distribution Width CV 12.7 % (11.6-14.6); RBC Distribution Width SD 43.3 fl (35.1-43.9); Red Blood Count 4.64 M/mm3 (4.6-6.2); White Blood Count 9.5 K/mm3 (4.4-11.0)
[2023-06-23 07:07] LABS: Bedside Glucose 105 mg/dL (74-106)
[2023-06-23 07:41] LABS: Anion Gap 4 (5-15); BUN 25 mg/dL (7-18); BUN/Creat Ratio 28.3 RATIO (10-20); Calcium,Total 8.9 mg/dL (8.5-10.1); Chloride 105 mmol/L (98-107); Creatinine, Serum 0.88 mg/dL (0.70-1.30); EST Glomerular Filtration Rate 90 mL/min (>60); Est Glom Filt Rate - Afr Amer 108 mL/min (>60); Estimated Creatinine Clearance 79.61 ml/min; Glucose 67 mg/dL (74-106); Magnesium 2.2 mg/dL (1.6-2.6); Phosphorus 3.9 mg/dL (2.5-4.9); Potassium 3.5 mmol/L (3.5-5.1); Sodium Level 139 mmol/L (136-145)
--- NOTE | 2023-06-23 07:44 | DS.PCM_ITS ---
Providers Date of Admission: 06/21/23 Date of Discharge: 06/23/23 Primary Care Physician: Dr. Behzad Pierce, DO Reason For Visit: EXACERBATION OF COPD, HYPOXIA Diagnosis Discharge Diagnosis (1) Asthma exacerbation in COPD: Status: Chronic Code(s): J44.1 - Chronic obstructive pulmonary disease with (acute) exacerbation; J45.901 - Unspecified asthma with (acute) exacerbation Plan 73-year-old gentleman admitted with progressive shortness of breath diagnosed with COPD with acute exacerbation 1. COPD with acute exacerbation ? Admitted to regular nursing floor managed with bronchodilator treatments in addition to systemic steroid and supplemental oxygen 2. Acute hypoxia secondary to COPD with acute exacerbation 2. Dysphagia ? Consult placed to speech therapy 4. Diabetes mellitus type II -patient's oral hypoglycemics held. Placed on long acting insulin, Accu-Cheks a.c. and at bedtime and covered with sliding scale insulin 5. Depression ? Patient is on Effexor 6. Hypertension - Blood pressure controlled, home medications continued with dose adjustment as needed 7. DVT prophylaxis ? SC heparin Time spent in the patient's overall evaluation,decision-making process, review of diagnostic data, adjustment of management, discussion with other providers, nursing nursing and ancillary staff involved in patient's care documentation, 35 Minutes Medications at Discharge Home Medications venlafaxine 75 mg capsule,extended release 24 hr 75 mg PO QDAY ask pcp #90 caps 05/29/22 lisinopril 10 mg-hydrochlorothiazide 12.5 mg tablet 1 tab PO .one daily ask pcp #90 tabs 07/30/22 metformin 500 mg tablet,extended release 24 hr 500 mg PO QDAY dm #90 tabs 07/30/22 nifedipine 30 mg tablet,extended release 30 mg PO QDAY ask pcp #90 tabs 07/30/22 gabapentin 400 mg capsule 400 mg PO .QID ask pcp #360 caps 04/22/23 insulin glargine 100 unit/mL (3 mL) subcutaneous pen (Lantus Solostar U-100 Insulin) 40 unit subcut QHS dm 06/21/23 azithromycin 500 mg tablet 500 mg PO DAILY 3 days #3 tabs 06/23/23 guaifenesin 1,200 mg tablet, extended release 12 hr (Mucinex) 1,200 mg PO BID #14 tabs 06/23/23 prednisone 20 mg tablet 20 mg PO BID #10 tabs 06/23/23 Hospital Course Summary of Care Provided Minutes Spent on Discharge: 35 Physical Exam Narrative GENERAL: cooperative HEENT: Atraumatic; normocephalic EYES; Anicteric, Normal Conjunctiva NECK; supple, normal thyroid, RESPIRATORY: Diminished to auscultation CARDIOVASCULAR: Regular S1 S2, GI: soft, normoactive bowel sounds, : No Renal angle tenderness; EXTREMITIES: No edema, no clubbing, MUSCULOSKELETAL: no muscle wasting NEURO: Awake; no lateralizing signs. SKIN: No Rash PSYCH; Flat affect Weight / BMI Weight Weight: 93.894 kg Body Mass Index (BMI) 28.0 ABG / Lab / Microbiology Data 06/23/23 06:17 06/23/23 06:17 Laboratory: Laboratory Results - last 24 hr 06/22/23 11:15: POC Glucose 306 H 06/22/23 15:46: POC Glucose 254 H 06/22/23 21:50: POC Glucose 165 H 06/23/23 06:17: WBC 9.5, RBC 4.64, Hgb 13.9, Hct 43.1, MCV 92.9, MCH 30.0, MCHC 32.3, RDW Std Deviation 43.3, RDW Coeff of María 12.7, Plt Count 256, MPV 11.0, Immature Gran % (Auto) 0.200, Neut % (Auto) 54.1, Lymph % (Auto) 34.6, [place] % (A uto) 7.8, Eos % (Auto) 2.6, Baso % (Auto) 0.7, Absolute Neuts (auto) 5.2, Absolute Lymphs (auto) 3.30, Nucleated RBC % 0, Sodium 139, Potassium 3.5, Chloride 105, Carbon Dioxide 30.0, Anion Gap 4 L, BUN 25 H, Creatinine 0.88, Estim Creat Clear Calc 79.61, Est GFR (MDRD) Af Amer 108, Est GFR (MDRD) Non-Af 90, BUN/Creatinine Ratio 28.3 H, Glucose 67 L, Calcium 8.9, Phosphorus 3.9, Magnesium 2.2 06/23/23 06:22: POC Glucose 74 06/23/23 06:50: POC Glucose 105 Microbiology: Microbiology 06/21/23 13:20 Mucosa - Nasopharyngeal Respiratory Panel (PCR) - Final D/C Instructions Discharge Diet: No restrictions Discharge Activity: Return to Normal Activity Call your doctor if you observe: Fever of 101 or Higher, Shortness of breath, Fainting spells and Chest pain Meaningful Use Info Meaningful Use Diagnoses (Choose all that apply): None applicable Discharge Plan Admission Admit Date/Time: 06/21/23 11:35 Attending Provider: Benito Kebede Primary Care Provider: Behzad Pierce Consulting Providers: William Ruffin Discharge Orders/Prescriptions Prescriptions: New prednisone 20 mg tablet 20 mg PO BID Qty: 10 0RF azithromycin 500 mg tablet 500 mg PO DAILY 3 Days Qty: 3 0RF Mucinex 1,200 mg tablet extended release 12hr 1,200 mg PO BID Qty: 14 0RF Continued lisinopril-hydrochlorothiazide 10-12.5 mg tablet 1 tab PO .one daily Qty: 90 3RF metformin 500 mg tablet extended release 24 hr 500 mg PO QDAY Qty: 90 3RF nifedipine 30 mg tablet extended release 30 mg PO QDAY Qty: 90 3RF gabapentin 400 mg capsule 400 mg PO .QID Qty: 360 1RF insulin glargine [Lantus Solostar U-100 Insulin] 100 unit/mL (3 mL) insulin pen 40 unit SC QHS venlafaxine 75 mg capsule,extended release 24hr 75 mg PO QDAY Qty: 90 1RF Referrals / Follow Up: Behzad Pierce DO [Primary Care Provider] - Within 2 Weeks Disposition Disposition (needs filled in before D/C Order can be placed): Home, Self Care Charges/Coding Visit Charges Inpatient E&M: 17872 Disch Hosp >30min
[2023-06-23] MEDS: metFORMIN (XR) 500 MG Tablet PO (09:26)
[2023-06-23 09:28] VITALS: O2SAT 86
[2023-06-23 09:30] VITALS: O2SAT 81; O2SAT 86; O2SAT 87; O2SAT 89; O2SAT 90
[2023-06-23 09:32] VITALS: BP 132/91; PULSE 85; RESP 18; TEMP 36.8; O2SAT 91
--- NOTE | 2023-06-23 09:41 | PHA.DC_ITS ---
Pharmacy [facility] Pharmacy Service has performed discharge medication reconciliation and counseling for this patient. 1. AZITHROMYCIN 500MG PO DAILY X 3 DAYS 2. GUAIFENESIN 1200MG PO BID x 7 DAYS 3. PREDNISONE 20MG PO BID X 5 DAYS The patient's discharge medication list was reviewed for discrepancies and discrepancies were resolved. The patient was counseled on the following discharge medications and changes in medications for homegoing were reviewed. The Reason for Use, instructions for use, and potential side effects were reviewed for all new medications. The patient's questions regarding all of their medications were answered. The patient was able to verbally demonstrate an understanding of their discharge medications. Patient counseled by pharmacy picking technicianZaira. Medications at Discharge Home Medications venlafaxine 75 mg capsule,extended release 24 hr 75 mg PO QDAY ask pcp #90 caps 05/29/22 lisinopril 10 mg-hydrochlorothiazide 12.5 mg tablet 1 tab PO .one daily ask pcp #90 tabs 07/30/22 metformin 500 mg tablet,extended release 24 hr 500 mg PO QDAY dm #90 tabs 07/30/22 nifedipine 30 mg tablet,extended release 30 mg PO QDAY ask pcp #90 tabs 07/30/22 gabapentin 400 mg capsule 400 mg PO .QID ask pcp #360 caps 04/22/23 insulin glargine 100 unit/mL (3 mL) subcutaneous pen (Lantus Solostar U-100 Insulin) 40 unit subcut QHS dm 06/21/23 azithromycin 500 mg tablet 500 mg PO DAILY 3 days #3 tabs 06/23/23 guaifenesin 1,200 mg tablet, extended release 12 hr (Mucinex) 1,200 mg PO BID #14 tabs 06/23/23 prednisone 20 mg tablet 20 mg PO BID #10 tabs 06/23/23
[2023-06-23] MEDS: Glucerna Shake 120 ML LIQUID PO (09:42)
[2023-06-23] MEDS: hydroCHLOROthiazide 12.5mg 12.5 MG PO (09:43)
[2023-06-23] MEDS: NIFEdipine 30 MG Tablet PO (09:43)
[2023-06-23] MEDS: Lisinopril 10 MG Tablet PO (09:44)
[2023-06-23] MEDS: Acetaminophen 325 MG Tablet 650 MG PO (09:44)
[2023-06-23] MEDS: Venlafaxine XR 75 MG Capsule PO (09:44)
[2023-06-23] MEDS: Gabapentin 400 MG Capsule PO (10:11)
[2023-06-23] MEDS: Insulin Glargine-YFGN 100 UNIT/ML Pen 35 UNIT SC (10:14)
[2023-06-23 10:35] LABS: Bedside Glucose 209 mg/dL (74-106)
--- NOTE | 2023-06-23 10:50 | CASEMGMT ---
RODNEY LOVETT NOTE: D/C order is in. Home O2 testing has been completed and pt qualifies for O2 @ 2 l/m w/exertion. Script obtained from Dr Kebede. RODNEY LOVETT also informed that pt reported to RNKaley, that he has fallen down his spiral staircase @ home. RODNEY LOVETT to room. Discussed Home O2 and set-up process and discussed different DME companies. Pt denies having preference, made aware [employer] is affiliated w/[facility], and pt states to use [employer]. Referral sent to [employer] via [employer]. Portable O2 tank taken to pt's room from [facility] stock for pt to take home. Pt verifies he does have a pulse ox @ home. Pt made aware he should use the O2 w/exertion @ 2 l/m until he follows up w/his PCP and he can discuss w/him at that time if he needs to continue to use it. Pt made aware ST is recommending OP ST and he was provided w/Script for OP ST. Pt made aware he can take to any location of his choice. Offered to fax to his preference/location and he states he will take care of it. PT/OT evals have been completed. Discussed recommendations. Pt states he wishes to return home, he feels he will be safe to return home, does not want script for OP therapy as he feels he does not need it, and states he will f/u with his PCP if he changes his mind. He also declines wanting a walker @ d/c, stating, that would trip me up worse than what I already do. He denies having other discharge planning needs or concerns. [place] RAE RN, CM
--- NOTE | 2023-06-23 11:07 | CASEMGMT ---
Social Work SW met with pt and inquired about advance directives. Pt states he has a living will and a andrea care POA naming his son Raúl Potter Jr. SW requested copies be brought in for scanning into the medical record. ROMMEL Sherman
[2023-06-23 15:23] LABS: Bedside Glucose 389 mg/dL (74-106)
== END 2023-06-23 11:37 | disposition home or self-care (01) | DRG 191 ==
LOC: ED 10:43 → MS3 11:50
PROVIDERS: Admitting Provider Internal Medicine; Emergency Provider Student in an Organized Health Care Education/Training Program; PCP Family Medicine; Visit Provider Internal Medicine
DX: J43.9 Emphysema, unspecified (principal); J45.901 Unspecified asthma with (acute) exacerbation; E11.40 Type 2 diabetes mellitus with diabetic neuropathy, unspecified; I10 Essential (primary) hypertension; E78.2 Mixed hyperlipidemia; F17.210 Nicotine dependence, cigarettes, uncomplicated; F32.A Depression, unspecified; R13.10 Dysphagia, unspecified; R09.02 Hypoxemia; H91.93 Unspecified hearing loss, bilateral; Z79.84 Long term (current) use of oral hypoglycemic drugs
CPT/HCPCS: 36415; 71045; 74230; 80048; 82962; 83735; 83880; 84100; 84484; 85025; 85379; 87633; 92526; 92610; 92611; 93005; 94640; 97162; 97166; 97802; 99252; 99284; A4216; G0463

== ENCOUNTER → 2024-01-27 | Outpatient (CLI) | payer MEDICARE, SELFPAY ==
--- NOTE | 2024-01-27 14:29 | RAD_ITS ---
STUDY: X-RAY CHEST REASON FOR EXAM: Male, 73 years old. Unintentional weight loss. TECHNIQUE: Frontal and lateral views of the chest on 4 images. COMPARISON: 06/21/2023 FINDINGS: Stable hyperinflation. There is no demonstrated pleural abnormality. Borderline cardiomegaly unchanged. Normal mediastinum and marv. Normal visualized pulmonary arteries. Aortic tortuosity with calcification unchanged. Thoracic osteopenia with diffuse mild thoracic spondylosis. Normal visualized ribs, clavicles, and shoulders. No abnormality of the visualized soft tissue structures of the upper abdomen. RAD/Chest PA and Lateral IMPRESSION: Stable borderline cardiomegaly with hyperinflation and no acute or active cardiopulmonary disease. Electronically Signed: Esteban Dykes MD at 15:02 EDT ,
[2024-01-27 15:45] LABS: Absolute Lymphocyte Count 1.87 X10^3/uL (0.83-4.51); Absolute Neutrophil Count 5.9 X10^3/uL (2.0-7.7); Basophil# 0.08 X10^3/uL; Basophil% 0.9 % (0-1); Eosinophil# 0.11 X10^3/uL; Eosinophils% 1.3 % (0-5); Hematocrit 44.1 % (40-54); Hemoglobin 14.6 g/dL (13.0-16.5); Lymphocyte # 1.87 X10^3/ul (0.83-4.51); Lymphocyte % 21.6 % (19-41); Mean Corp Hgb Conc 33.1 g/dL (32-36); Mean Corpuscular Hgb 30.9 pg (27.0-32.0); Mean Corpuscular Volume 93.2 fL (80-94); Mean Platelet Vol. 11.3 fl (6.2-12.0); Monocyte# 0.65 X10^3/uL; Monocyte% 7.5 % (0-10); NRBC Flagged by Analyzer 0 % (0-5); Neutrophil # 5.91 X10^3/uL (2.7-7.7); Neutrophil % 68.5 % (47-70); Platelet Count 281 K/mm3 (150-450); RBC Distribution Width CV 12.9 % (11.6-14.6); RBC Distribution Width SD 44.5 fl (35.1-43.9); Red Blood Count 4.73 M/mm3 (4.6-6.2); White Blood Count 8.6 K/mm3 (4.4-11.0)
[2024-01-27 16:07] LABS: ALB/GLOB Ratio 1.1 RATIO (0.9-2.4); AST(SGOT) 13 U/L (15-37); Alanine Aminotransfer ALT/SGPT 22 U/L (16-61); Albumin, Serum 4.1 g/dL (3.2-5.0); Alkaline Phosphatase 72 U/L (45-117); Anion Gap 7 (5-15); BUN 10 mg/dL (7-18); BUN/Creat Ratio 10.4 RATIO (10-20); Calcium,Total 9.4 mg/dL (8.5-10.1); Chloride 104 mmol/L (98-107); Creatinine, Serum 0.96 mg/dL (0.70-1.30); EST Glomerular Filtration Rate 81 mL/min (>60); Est Glom Filt Rate - Afr Amer 98 mL/min (>60); Globulin 3.6 g/dL (2.2-4.2); Glucose 118 mg/dL (74-106); Potassium 3.9 mmol/L (3.5-5.1); Protein, Total 7.7 g/dL (6.4-8.2); Sodium Level 138 mmol/L (136-145); Thyroid Stim Hormone (TSH) 0.52 uIU/mL (0.358-3.74)
== END | disposition home or self-care (01) ==
PROVIDERS: PCP Family Medicine; Referring Provider Family Medicine; Visit Provider Family Medicine
DX: E11.9 Type 2 diabetes mellitus without complications (principal); Z79.4 Long term (current) use of insulin; R63.4 Abnormal weight loss
CPT/HCPCS: 36415; 71046; 80053; 84443; 85025

== ENCOUNTER → 2024-07-27 | Outpatient (CLI) | payer MEDICARE, SELFPAY ==
[2024-07-27 16:42] LABS: Absolute Lymphocyte Count 2.23 X10^3/uL (0.83-4.51); Basophil# 0.09 X10^3/uL; Basophil% 1.3 % (0-1); Eosinophil# 0.12 X10^3/uL; Eosinophils% 1.7 % (0-5); Hematocrit 45.5 % (40-54); Hemoglobin 15.2 g/dL (13.0-16.5); Lymphocyte # 2.23 X10^3/ul (0.83-4.51); Lymphocyte % 31.4 % (19-41); Mean Corp Hgb Conc 33.4 g/dL (32-36); Mean Corpuscular Volume 89.7 fL (80-94); Mean Platelet Vol. 11.2 fl (6.2-12.0); Monocyte# 0.64 X10^3/uL; NRBC Flagged by Analyzer 0 % (0-5); Neutrophil % 56.3 % (47-70); Platelet Count 305 K/mm3 (150-450); RBC Distribution Width CV 13.1 % (11.6-14.6); RBC Distribution Width SD 42.3 fl (35.1-43.9); Red Blood Count 5.07 M/mm3 (4.6-6.2); White Blood Count 7.1 K/mm3 (4.4-11.0)
[2024-07-27 17:02] LABS: Hemoglobin A1c 11.9 % (3.8-5.6)
[2024-07-27 17:04] LABS: AST(SGOT) 9 U/L (15-37); Alanine Aminotransfer ALT/SGPT 15 U/L (16-61); Albumin, Serum 3.8 g/dL (3.2-5.0); Alkaline Phosphatase 64 U/L (45-117); Anion Gap 5 (5-15); BUN 18 mg/dL (7-18); BUN/Creat Ratio 17.5 RATIO (10-20); Calcium,Total 9.5 mg/dL (8.5-10.1); Chloride 99 mmol/L (98-107); Creatinine, Serum 1.03 mg/dL (0.70-1.30); EST Glomerular Filtration Rate 75 mL/min (>60); Est Glom Filt Rate - Afr Amer 90 mL/min (>60); Globulin 3.8 g/dL (2.2-4.2); Glucose 219 mg/dL (74-106); PSA,Total- Diagnostic 5.76 ng/mL (0.0-4.0); Potassium 4.7 mmol/L (3.5-5.1); Protein, Total 7.6 g/dL (6.4-8.2); Sodium Level 135 mmol/L (136-145)
== END | disposition home or self-care (01) ==
LOC: BIMLAB 14:30
PROVIDERS: PCP Family Medicine; Referring Provider Family Medicine; Visit Provider Family Medicine
DX: R63.4 Abnormal weight loss (principal); E11.9 Type 2 diabetes mellitus without complications; Z79.4 Long term (current) use of insulin; R35.0 Frequency of micturition
CPT/HCPCS: 36415; 80053; 83036; 84153; 85025

== ENCOUNTER → 2025-04-26 | Outpatient (CLI) | payer MEDICARE, SELFPAY ==
[2025-04-26 17:54] LABS: Anion Gap 14 (5-15); BUN 15 mg/dL (4-19); BUN/Creat Ratio 15.2 RATIO (10-20); Calcium,Total 9.6 mg/dL (7.6-11.0); Carbon Dioxide 22.6 mmol/L (21.0-32.0); Chloride 96 mmol/L (98-108); Creatinine, Serum 0.96 mg/dL (0.70-1.20); EST Glomerular Filtration Rate 81 (>60); Glucose 371 mg/dL (70-99); Potassium 4.2 mmol/L (3.3-5.1); Sodium Level 132 mmol/L (133-145)
== END | disposition home or self-care (01) ==
LOC: BIMLAB 15:40
PROVIDERS: PCP Family Medicine; Referring Provider Family Medicine; Visit Provider Family Medicine
DX: E11.9 Type 2 diabetes mellitus without complications (principal); Z79.4 Long term (current) use of insulin
CPT/HCPCS: 36415; 80048

== ENCOUNTER 2025-10-18 10:53 | Inpatient (IN) | payer MEDICARE, SELFPAY ==
[2025-10-18] VITALS (7 sets, daily range): BP systolic 114–143; BP diastolic 62–102; PULSE 55–108; RESP 18–22; TEMP 36.7–37; O2SAT 92–96; BMI 23.6; BMI 22.0
--- NOTE | 2025-10-18 11:22 | ED.RN ---
spoke with neighbor, Kerry. states pt does have confusion at times. went to pick him up for dr escobar and pt did not answer door. then he came over and it was too late for her to take him. he then drove self to appt.
--- NOTE | 2025-10-18 11:37 | CT_ITS ---
EXAM: BRAIN/HEAD WITHOUT CONTRAST; SPINE CERVICAL WITHOUT CONTRAS CLINICAL HISTORY: FALL, HIT HEAD; FALL HIT HEAD Headache and neck pain COMPARISON: None. TECHNIQUE: Noncontrast images of the head and cervical spine with multiplanar reconstructions. Dose reduction techniques were used including intermediate exposure control (AEC),iterative reconstruction technique, and/or mA and/or KV dose adjustments based on patient's size. Total DLP 523+ 779 mGy per cm. FINDINGS: CT HEAD FINDINGS: No acute intracranial hemorrhage, mass, mass effect, midline shift or pathologic extra-axial fluid collection. No hydrocephalus. Age- appropriate cerebral volume and white matter. Mild arthrosclerotic calcifications in the bilateral internal carotid artery siphons. Opacified material within the right maxillary sinus and absent medial antral wall The calvarium is grossly intact. CT CERVICAL SPINE FINDINGS: Straightening of the cervical lordosis, which can be positional secondary to muscle spasm or degenerative. Multilevel cervical spine spondylosis with disc space reduction, endplate irregularity/marginal osteophytic spurring and facet arthropathy. No obvious acute displaced fracture or vertebral body compression deformity. Multilevel degenerative related cervical spinal canal and neuroforaminal stenosis. No prevertebral soft tissue thickening. Paraseptal and centrilobular emphysematous changes in the apices. Carotid artery atherosclerotic vascular calcifications. CT/Spine Cervical without Contras IMPRESSION: 1. No evidence of acute intracranial hemorrhage, hydrocephalus, or herniation. 2. Moderate multilevel degenerative changes of the cervical spine without acut e fracture or spondylolisthesis. 3. Paraseptal and centrilobular emphysematous changes in the apices. Reading Location: [id number]
--- NOTE | 2025-10-18 11:37 | CT_ITS ---
PROCEDURE: SPINE LUMBAR WITHOUT CONTRAST 10/18/2025 REASON FOR EXAM: FALL, WEAKNESS IN LEGS FOR 2-3 MONTHS TECHNIQUE: Procedure Code: CTSPL Modality: CT Procedure: SPINE LUMBAR WITHOUT CONTRAST Coronal and Sagittal reconstruction series were provided. One or more dose reduction techniques were used (e.g., Automated exposure control, adjustment of the mA and/or kV according to patient size, use of iterative reconstruction technique COMPARISON: Lumbar spine x-ray 04/20/2025. RADIATION DOSE SUMMARY: CTDlvol: 779.26 mGy DLP: 523.29 mGycm FINDINGS: Vertebrae: Preserved in height and signal. Alignment: Normal alignment. L1-2: Disc space narrowing. Disc bulge. Facet joints arthropathy. Moderate right and mild left foramina stenosis. No significant canal stenosis. L2-3: Disc space narrowing and vacuum phenomena. Sclerotic endplates. Facet joints arthropathy. Mild bilateral foramina stenosis. Mild canal stenosis. L3-4: Disc space narrowing. Vacuum phenomena. Moderate bilateral foramina stenosis. Mild canal stenosis. L4-5: Disc space narrowing. Facet joints arthropathy. Severe left and mild right foramina stenosis. No significant stenosis. L5-S1: Disc space narrowing. Facet joints arthropathy. Severe right and moderate left foramina stenosis. No significant canal stenosis. Sacrum: No acute findings. CT/Spine Lumbar without Contrast IMPRESSION: Degenerate changes predominantly for severe left foramina stenosis at L4-L5 wit h potential mass-effect upon the exiting left L4 and severe right foramina stenosis at L5-S1. No significant canal stenosis. No acute injury to the lumbar spine. Reading Location: [id number]
--- NOTE | 2025-10-18 11:39 | EKG12_ITS ---
Test Reason : Blood Pressure : */* mmHG Vent. Rate : 101 BPM Atrial Rate : 101 BPM P-R Int : 164 ms QRS Dur : 98 ms QT Int : 374 ms P-R-T Axes : 44 -67 52 degrees QTcB Int : 484 ms Sinus tachycardia Left anterior fascicular block Abnormal ECG Confirmed by RAOMN BAKER MD ([id number]), story editor STEWART DEY ([id number]) on 10/20/2025 9:03:54 AM Referred By: Confirmed By: RAMON BAKER MD
[2025-10-18 11:46] LABS: Hematocrit 41.7 % (40-54); Hemoglobin 14.6 g/dL (13.0-16.5); Immature Granulocytes Count 0.030 X10^3/uL (0.0-0.0); Mean Corp Hgb Conc 35.0 g/dL (32-36); Mean Corpuscular Volume 88.9 fL (80-94); Mean Platelet Vol. 11.5 fl (6.2-12.0); NRBC Flagged by Analyzer 0 % (0-5); Platelet Count 310 K/mm3 (150-450); RBC Distribution Width CV 11.9 % (11.6-14.6); RBC Distribution Width SD 38.2 fl (35.1-43.9); Red Blood Count 4.69 M/mm3 (4.6-6.2); White Blood Count 8.8 K/mm3 (4.4-11.0)
--- NOTE | 2025-10-18 12:00 | RAD_ITS ---
PROCEDURE: PELVIS 1 OR 2 VIEWS 10/18/2025 REASON FOR EXAM: FALL, BILATERAL HIP PAIN TECHNIQUE: Procedure Code: RADPEL Modality: DX Procedure: PELVIS 1 OR 2 VIEWS COMPARISON: Prior examination dated April 20, 2025. FINDINGS: Hardware: None Bones: Once again, there is a 1.9 cm by 1.1 cm well-defined bony density overlying the greater trochanter of the proximal left hip suggestive of either old avulsion fracture or calcific tendinitis. Joints: Mild degree of bilateral joint space narrowing of the hips. soft tissues: Vascular calcification. Other: RAD/Pelvis 1 or 2 Views IMPRESSION: No acute abnormality is seen. Degenerative changes. Reading Location: [facility]
--- NOTE | 2025-10-18 12:03 | RAD_ITS ---
PROCEDURE: CHEST 1 VIEW 10/18/2025 REASON FOR EXAM: FALL TECHNIQUE: Frontal view of the chest. COMPARISON: January 27, 2024 FINDINGS: Hardware: EKG leads Heart: Heart size is mildly enlarged. Lungs: The lungs are clear. Bones: Degenerative changes of the thoracic spine with curvature thoracolumbar spine to the right. RAD/Chest 1 View IMPRESSION: No acute cardiopulmonary process Reading Location: [id number]
[2025-10-18 12:11] LABS: Anion Gap 13 (5-15); BUN 18 mg/dL (4-19); BUN/Creat Ratio 18.9 RATIO (10-20); Calcium,Total 9.4 mg/dL (7.6-11.0); Carbon Dioxide 25.6 mmol/L (21.0-32.0); Chloride 96 mmol/L (98-108); Estimated Creatinine Clearance 70.00 ml/min (50-250); Glucose 452 mg/dL (70-99); Potassium 3.5 mmol/L (3.3-5.1)
[2025-10-18] MEDS: Insulin NPH Human 100 UNITS/ML PEN 10 UNITS SC (12:36)
[2025-10-18] MEDS: 0.9% Normal Saline (1000mL) 1,000 ML 1000 ML IV (12:36)
--- NOTE | 2025-10-18 12:43 | EDS_ITS ---
HPI History of Present Illness Chief Complaint: Weakness Narrative Narrative: Patient is a 75-year-old male presenting to the emergency department for multiple falls. Patient was at his primary care doctor's office today and the physician was very concerned about his frequent falling and leg weakness and sentiment for evaluation. Patient states that he has had frequent falls over the past 2 to 3 weeks due to feeling like his legs are giving out on him. States the worst was at [facility] a few days ago when his legs gave out mainly his right causing him to fall and strike his head. He denies any loss of consciousness. He is not on any oral anticoagulation. He states that the leg weakness is not new today but started around 3 weeks ago and has worsened since then. He denies any back pain. He denies any headache or neck pain. Denies chest pain, shortness of breath, abdominal pain, nausea, vomiting, diarrhea. States that he lives at home alone. He is endorsing pain to his right lateral hip and left posterior hip. Denies any other pain. Denies any bowel or bladder incontinence or retention, saddle anesthesia, numbness in his legs, recent weight loss, immunocompromise status including cancer or diabetes. Denies any IV drug use. [facility] Medical History Hip pain, right Low back pain at multiple sites Hearing loss, right Hearing loss, left Skin cancer Neuropathy Combined hyperlipidemia Hypertension Emphysema of lung Type 2 diabetes mellitus Home Medications ?Medication ?Instructions ?Recorded ?Last Taken ?Type lisinopril 10 1 tab PO .one daily ask pcp #90 04/27/24 Unknown Rx mg-hydrochlorothiazide 12.5 mg tabs tablet Held on 10/18/25. Instructions: out of med nifedipine 30 mg tablet,extended 30 mg PO QDAY ask pcp #90 tabs 04/27/24 Unknown Rx release Held on 10/18/25. Instructions: out of med venlafaxine 75 mg capsule,extended 75 mg PO DAILY #90 caps 01/24/25 Unknown Rx release 24 hr Held on 10/18/25. Instructions: out of med insulin glargine 100 unit/mL (3 15 unit (0.15 mL) subc ut QPM #15 mL 04/26/25 Unknown Rx mL) subcutaneous pen (Lantus Solostar U-100 Insulin) Held on 10/18/25. Instructions: out of med metformin 500 mg tablet,extended 500 mg PO QDAY dm #90 tabs 07/07/25 Unknown Rx release 24 hr budesonide-formoterol HFA 160 2 puff inhalation BID #1 0.2 grams 08/15/25 Unknown Rx mcg-4.5 mcg/actuation aerosol inhaler Held on 10/18/25. Instructions: out of med face mask for Oxygen #1 ea 08/15/25 Unknown Rx gabapentin 400 mg capsule 400 mg PO .QID neuropathy #3 60 caps 08/15/25 Unknown Rx glipizide 5 mg tablet 5 mg PO QDAY #90 tabs Unknown Rx Held on 10/18/25. Instructions: out of med oxygen generator #1 ea 08/15/25 Unknown Rx Allergy/AdvReac Type Severity Reaction Status Date / Time No Known Allergies Allergy Verified 10/18/25 10:55 Family History Father Heart disease Mother Heart disease Surgical History History of carpal tunnel release History of cataract Social History (Updated 10/18/25 @ 19:[address] Sherri Hood DO) household members: none housing: house Smoking Status: Current every day smoker tobacco type: cigarettes Smoking packs per day: 3 Smoking cigarettes per day: 60.0 alcohol intake: never substance use type: does not use what type of physical activity do you participate in: none ROS ROS ED ROS Narrative See HPI EXAM Physical Exam Narrative Exam Narrative: Vital signs: Reviewed General: Alert and orientedx3. No acute distress. Chronically ill appearing, nontoxic. HEENT: Head is normocephalic and atraumatic, sinuses nontender, pupils equal round and reactive. EOMI. Nares are patent. Oropharynx and throat exams normal. Neck: Supple without lymphadenopathy nontender Cardiovascular: Regular rate and rhythm, no murmurs. No rubs or gallops. Normal S1 and S2 Respiratory: Clear to auscultation bilaterally. No wheezes, rales, rhonchi Abdominal: Soft and nontender. Normal bowel sounds. No guarding or rebound. Nonsurgical abdomen Extremities: No tenderness. No bruising. Normal range of motion. Normal sensation. Skin: No rash or redness. Neurological: Cranial nerves II through XII are grossly intact. Normal strength and sensation in BUE. 4/5 strength in LLE. Normal sensation in bilateral lower extremities. RLE with 3/5 strength. Unable to elicit bilateral patella or Achilles reflexes bilaterally. DP pulses intact bilaterally. The rest of the physical exam is unremarkable Const Vital Signs: 10/18/25 10:55 10/18/25 10:57 10/18/25 11:24 Temperature 98.6 F Temperature Source Oral Pulse Rate 100 100 Respiratory Rate 20 H 22 H Respiratory Effort Normal Non-Labored Respiratory Pattern Normal Blood Pressure 143/79 H 129/85 H Blood Pressure Mean 100 99 Pulse Ox 96 96 Oxygen Delivery Method Room Air Room Air 10/18/25 12:41 10/18/25 12:47 Temperature 98.6 F Temperature Source Pulse Rate 94 92 Respiratory Rate 18 18 Respiratory Effort Respiratory Pattern Blood Pressure 129/84 H 136/102 H Blood Pressure Mean 99 113 Pulse Ox 95 96 Oxygen Delivery Method Room Air MDM MDM MDM Narrative Medical decision making narrative: Patient is a 75-year-old male presenting to the emergency department with frequent falls/failure to thrive at home. Patient was seen and examined. Vitals are stable. Patient resting in bed comfortably no acute distress. Differential includes but is not limited to: Possible stroke, spinal stenosis Patient will require admission due to his frequent falls and right leg weakness which is not acutely new, been going on for weeks. I do not think patient needs an emergent MRI. EKG shows sinus tachycardia at a rate of 101 with a left anterior fascicular block. No ischemic changes. CBC with leukocytosis and normal hemoglobin. BMP with no significant abnormalities other than hyperglycemia of 452, normal bicarb and anion gap, no evidence of DKA. Patient will be given subcutaneous insulin. CT of the brain shows no evidence of acute intracranial abnormalities. CT cervical spine with degenerative changes, no acute fracture. CT of the lumbar spine shows degenerate changes predominantly for severe left foramina stenosis at L4-L5 with potential mass-effect upon the exiting left L4 and severe right foramina stenosis at L5-S1. No significant canal stenosis. No acute injury to the lumbar spine. Discussed admission with patient for further workup including possible MRI of lumbar spine on a nonemergent basis, MRI brain and possible PT. Patient is agreeable. Admitted to hospitalist, Dr. Hood for further management. Clinical impression Right leg weakness Frequent falls Hyperglycemia History & Record Review Discussion w/independent historian: Patient Lab Data Attestation: I reviewed the patient's lab results. Labs: Laboratory Results - last 24 hr 10/18/25 11:10 Vitamin B12 437 Radiography Diagnostic Testing: Clinical Impression(s) from Imaging Studies Brain CT 10/18/25 11:37 IMPRESSION: 1. No evidence of acute intracranial hemorrhage, hydrocephalus, or herniation. 2. Moderate multilevel degenerative changes of the cervical spine without acute fracture or spondylolisthesis. 3. Paraseptal and centrilobular emphysematous changes in the apices. Reading Location: [facility] Cervical Spine CT 10/18/25 11:37 IMPRESSION: 1. No evidence of acute intracranial hemorrhage, hydrocephalus, or herniation. 2. Moderate multilevel degenerative changes of the cervical spine without acute fracture or spondylolisthesis. 3. Paraseptal and centrilobular emphysematous changes in the apices. Reading Location: [facility] Lumbar Spine CT 10/18/25 11:37 IMPRESSION: Degenerate changes predominantly for severe left foramina stenosis at L4-L5 with potential mass-effect upon the exiting left L4 and severe right foramina stenosis at L5-S1. No significant canal stenosis. No acute injury to the lumbar spine. Reading Location: [facility] Pelvis X-Ray 10/18/25 12:00 IMPRESSION: No acute abnormality is seen. Degenerative changes. Reading Location: [facility] Chest X-Ray 10/18/25 12:03 IMPRESSION: No acute cardiopulmonary process Reading Location: [id number] Discharge Plan Disposition Disposition: Acute Care Hospital [facility] Discharge Date/Time: 10/18/25 13:55
--- NOTE | 2025-10-18 13:03 | ED.RN ---
spoke with neighbor Kerry to inform of pt's admission.
--- NOTE | 2025-10-18 13:11 | PCM.HP.STD ---
HPI - General General Date of Admission: 10/18/25 Date of Service: 10/18/25 Chief Complaint: LE weakness HPI Narrative KELSEY YOUSSEF, is a 75 M who presented to the emergency department [facility] on 10/18/2025 with a chief complaint of falls and severe bilateral lower extremity right greater than left weakness. Patient states has been ongoing however it sounds like it has really been worse over the last 2 to 3 weeks. He states he really has the most trouble when he is in single-leg stance to go up steps or down steps and he tends to fall towards the contralateral side or his leg will give out on him. It does not sound like he is consistently using an assistive device at home. He does not complain of any significant pain. He states there is some mild sensory changes but nothing significant. Patient has had multiple falls at home and lives alone. He states he has no significant amount of family members. Vital signs on presentation showed a temperature of 98.6, heart rate 100, respiratory 20, blood pressure was 143/79 and pulse ox was 96% on room air. CBC is unremarkable. Chemistry panel was overall unremarkable other than marked hyperglycemia with a blood glucose level of 452. Sodium was 135. Hemoglobin A1c was obtained and found to be 13.6. TSH was normal at 0.548. CT of the brain showed multiple levels of degenerative change of the cervical spine without acute fracture or spinal listhesis and no intracranial abnormalities along with paraseptal and centrilobular emphysematous changes in the apices. Cervical spine CT was overtly unremarkable. CT of the lumbar spine showed marked degenerative changes with severe left foraminal stenosis at L4-L5 and potential mass effect at the exiting L4 level with severe right foraminal stenosis at L5-S1. Given the patient's marked mobility issues and living independently with multiple falls he was admitted for further workup. [facility] Medical History Hip pain, right Low back pain at multiple sites Hearing loss, right Hearing loss, left Skin cancer Neuropathy Combined hyperlipidemia Hypertension Emphysema of lung Type 2 diabetes mellitus Home Medications ?Medication ?Instructions ?Recorded ?Last Taken ?Type lisinopril 10 1 tab PO .one daily ask pcp #90 04/27/24 Unknown Rx mg-hydrochlorothiazide 12.5 mg tabs tablet Held on 10/18/25. Instructions: out of med nifedipine 30 mg tablet,extended 30 mg PO QDAY ask pcp #90 tabs 04/27/24 Unknown Rx release Held on 10/18/25. Instructions: out of med venlafaxine 75 mg capsule,extended 75 mg PO DAILY #90 caps 01/24/25 Unknown Rx release 24 hr Held on 10/18/25. Instructions: out of med insulin glargine 100 unit/mL (3 15 unit (0.15 mL) subcut QPM #15 mL 04/26/25 Unknown Rx mL) subcutaneous pen (Lantus Solostar U-100 Insulin) Held on 10/18/25. Instructions: out of med metformin 500 mg tablet,extended 500 mg PO QDAY dm #90 tabs 07/07/25 Unknown Rx release 24 hr budesonide-formoterol HFA 160 2 puff inhalation BID #10.2 grams 08/15/25 Unknown Rx mcg-4.5 mcg/actuation aerosol inhaler Held on 10/18/25. Instructions: out of med face mask for Oxygen #1 ea 08/15/25 Unknown Rx gabapentin 400 mg capsule 400 mg PO .QID neuropathy #360 caps 08/15/25 Unknown Rx glipizide 5 mg tablet 5 mg PO QDAY #90 tabs 08/15/25 Unknown Rx Held on 10/18/25. Instructions: out of med oxygen generator #1 ea 08/15/25 Unknown Rx Allergy/AdvReac Type Severity Reaction Status Date / Time No Known Allergies Allergy Verified 10/18/25 10:55 Family History Father Heart disease Mother Heart disease Surgical History History of carpal tunnel release History of cataract Social History (Updated 10/18/25 @ 19:[address] Sherri Hood DO) household members: none housing: house Smoking Status: Current every day smoker tobacco type: cigarettes Smoking packs per day: 3 Smoking cigarettes per day: 60.0 alcohol intake: never substance use type: does not use what type of physical activity do you participate in: none ROS Constitutional Constitutional: Reports weakness; Denies anorexia, change in weight, chills, fatigue, fever(s), malaise, night sweats or other Eyes Eyes: Denies blurry vision, change in eye color, change in vision, discharge from eye(s), double vision, erythema, eye pain, loss of vision or other ENT HEENT: Reports hearing loss; Denies abnormal hearing, dysphagia, ear pain, epistaxis, headache(s), nasal congestion, nasal discharge, post nasal drip, sinus pressure, sore throat or other Cardiovascular Cardiovascular: Denies chest pain, claudication, dyspnea on exertion, edema, lightheadedness, orthopnea, palpitations, paroxysmal nocturnal dyspnea, rapid heart rate, syncope or other Respiratory/Chest Respiratory/Chest: Reports cough; Denies dyspnea, excessive phlegm production, hemoptysis, productive cough, shortness of breath at rest, shortness of breath with exertion, wheezing or other Gastrointestinal Gastrointestinal: Denies abdominal pain, coffee ground emesis, constipation, diarrhea, dyspepsia, hematemesis, hematochezia, loose stools, melena, nausea, vomiting or other Genitourinary Genitourinary: Denies burning urination, difficulty urinating, dysuria, hematuria, nocturia, urinary frequency, urinary hesitancy, urinary incontinence, urinary urgency or other Musculoskeletal Musculoskeletal: Reports back pain and other Details: Leg weakness right greater than left Neurologic Neurologic: Reports abnormal gait, focal weakness and paresthesias Psychiatric Psychiatric: Denies anxiety, depression, homicidal ideation, suicidal ideation or other Endocrine Endocrinology: Denies change in body appearance, cold intolerance, excessive sweating, heat intolerance, polydipsia, polyuria or other Hematologic/Lymphatic Hematologic/Lymphatic: Denies anemia, easy bleeding, easy bruising, lymphadenopathy or other Allergic/Immunologic Allergic/Immunologic: Denies rhinitis, hives, eczemia, asthma or other Vital Signs Vital Signs Vital Signs: 10/18/25 10:55 10/18/25 10:57 10/18/25 11:24 Temperature 98.6 F Temperature Source Oral Pulse Rate 100 100 Respiratory Rate 20 H 22 H Respiratory Effort Normal Non-Labored Respiratory Pattern Normal Blood Pressure 143/79 H 129/85 H Blood Pressure Mean 100 99 Pulse Ox 96 96 Oxygen Delivery Method Room Air Room Air 10/18/25 12:41 10/18/25 12:47 Temperature 98.6 F Temperature Source Pulse Rate 94 92 Respiratory Rate 18 18 Respiratory Effort Respiratory Pattern Blood Pressure 129/84 H 136/102 H Blood Pressure Mean 99 113 Pulse Ox 95 96 Oxygen Delivery Method Room Air Weight Weight: 79.1 kg Body Mass Index (BMI) 23.6 Physical Exam Const alert, oriented x3, no apparent distress and average body habitus; Negative for healthy appearing or well nourished Constitutional Narrative: Older, white male, lying in bed sleeping upon my arrival but awakens easily and with startle, sits up immediately with independent bed mobility, appears comfortable, does not look toxic General Appearance: cooperative HEENT normocephalic and head/scalp atraumatic; Negative for hearing grossly normal bilaterally HEENT Narrative: Mild to moderate hearing loss, dentition is poor, Mallampati is 1, temporal wasting bilaterally, no thrush Eyes Negative for conjunctivae normal Eyes Narrative: No scleral icterus Neck supple Neck Narrative: Trachea midline, neck veins are flat, no thyroid enlargement Resp normal respiratory effort, no retractions, no use of accessory muscles and clear to auscultation bilaterally Resp Narrative: Severely diminished diffusely with very poor air movement throughout lung villalobos Auscultation: Negative for crackles, rhonchi or wheezes Cardio regular rate, regular rhythm, S1 normal heart sound, S2 normal heart sound, no murmurs, no rub, no gallops and no clicks GI normal to inspection, nondistended, normoactive bowel sounds, soft to palpation and non-tender GI Narrative: Abdomen is scaphoid Extremity Extremity Narrative: Clubbing present, no cyanosis, no edema, decreased lean muscle mass Neuro Neuro Narrative: Diminished reflexes bilateral lower extremities, no fasciculations or twitching noted, patient with severe 3 out of 5 hip flexor strength and 3+ out of 5 knee extensor strength on the right, ankle dorsiflexion is 4 out of 5 on the right, plantarflexion is 4 out of 5 on the right, left lower extremity shows 4 out of 5 for hip flexor and knee extensor with 5 out of 5 for ankle dorsiflexion and plantarflexion, hamstrings bilaterally are 4+ out of 5, only sensory loss noted is at the 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 Speech: speech normal Psych affect normal Psych Narrative: Very pleasant, slightly impulsive interacts appropriately, makes good eye contact Results Lab / Micro Data 10/18/25 11:10 10/18/25 11:10 Labs: Laboratory Results - last 24 hr 10/18/25 11:10: WBC 8.8, RBC 4.69, Hgb 14.6, Hct 41.7, MCV 88.9, MCH 31.1, MCHC 35.0, RDW Std Deviation 38.2, RDW Coeff of María 11.9, Plt Count 310, MPV 11.5, Immature Gran % (Auto) 0.300, Neut % (Auto) 66.8, Lymph % (Auto) 18.1 L, [place] % (Auto) 10.2 H, Eos % (Auto) 3.3, Baso % (Auto) 1.3 H, Absolute Neuts (auto) 5.9, Absolute Lymphs (auto) 1.58, Nucleated RBC % 0, Sodium 135, Potassium 3.5, Chloride 96 L, Carbon Dioxide 25.6, Anion Gap 13, BUN 18, Creatinine 0.97, Estim Creat Clear Calc 70.00, Est GFR (MDRD) Non-Af 80, BUN/Creatinine Ratio 18.9, Glucose 452 H*, Calcium 9.4 Imaging Radiology Impression Brain CT 10/18/25 11:37 IMPRESSION: 1. No evidence of acute intracranial hemorrhage, hydrocephalus, or herniation. 2. Moderate multilevel degenerative changes of the cervical spine without acute fracture or spondylolisthesis. 3. Paraseptal and centrilobular emphysematous changes in the apices. Reading Location: [facility] Cervical Spine CT 10/18/25 11:37 IMPRESSION: 1. No evidence of acute intracranial hemorrhage, hydrocephalus, or herniation. 2. Moderate multilevel degenerative changes of the cervical spine without acute fracture or spondylolisthesis. 3. Paraseptal and centrilobular emphysematous changes in the apices. Reading Location: [facility] Lumbar Spine CT 10/18/25 11:37 IMPRESSION: Degenerate changes predominantly for severe left foramina stenosis at L4-L5 with potential mass-effect upon the exiting left L4 and severe right foramina stenosis at L5-S1. No significant canal stenosis. No acute injury to the lumbar spine. Reading Location: [id number] Pelvis X-Ray 10/18/25 12:00 IMPRESSION: No acute abnormality is seen. Degenerative changes. Reading Location: [facility] Chest X-Ray 10/18/25 12:03 IMPRESSION: No acute cardiopulmonary process Reading Location: [facility] Assessment & Plan Assessment/Plan (1) Right leg weakness: (2) Left leg weakness: (3) Debility: (4) Falls: PLAN: Plan Bilateral lower extremity weakness right greater than left - Check MRI of the brain to rule out any stroke - Check lumbar spine MRI - PT/OT consultation - Will likely need placement at discharge - Case management and social work consultation is pending - Depending on MRI we will consider consultation to neurology and will likely need outpatient EMG nerve conduction studies - Patient does have noted spine stenosis in his cervical and lumbar spine on CT scan - Exam is not consistent with upper motor neuron lesion - Check B12, TSH Debility/falls - Resulting from the above - PT/OT consultation - Case management/social work consultation for assistance with discharge planning Uncontrolled DM-2 - A1c was greater than 13 - Unclear if there is a compliance issue or medication dosages are not adequate - It appears on the med reconciliation that he is not taking a lot of his antihyperglycemic's as he has run out - Unclear the last time he took medication - Will restart his home insulin and hold oral agents with plans to uptitrate - SSI as ordered - Carb controlled diet Diabetic neuropathy - Continue home gabapentin Essential hypertension - Continue home antihypertensives to include HCTZ/lisinopril and nifedipine COPD/emphysema - Will plan on restarting inhalers - no signs of acute exacerbation DVT prophylaxis - Enoxaparin SQ daily CODE STATUS - DNR CCA with no intubation per discussion with patient after admission - PCU nurse present for conversation (Elinor) Charges/Coding Visit Charges Inpatient E&M: 71089 Init Hosp L3
--- NOTE | 2025-10-18 13:16 | MRI_ITS ---
PROCEDURE: MRI BRAIN WITHOUT CONTRAST 10/18/2025 REASON FOR EXAM: R LEG WEAKNESS TECHNIQUE: Procedure Code: MRIBR Modality: MR Procedure: BRAIN WITHOUT CONTRAST Multiplanar and multisequential MRI of the brain was performed without contrast. COMPARISON: CT head from same day. No prior exams. FINDINGS: No regions of abnormal restricted diffusion to indicate recent infarct. No evidence of acute intracranial hemorrhage, extra-axial collection, mass-effect, or other acute abnormality. Mild age-appropriate generalized brain parenchymal volume loss, and chronic microangiopathic changes in the cerebral white matter. 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 Major intracranial vascular flow voids are grossly preserved. Absent ely sh[place] ocular lenses. Opacification of the right maxillary sinus. No mastoid effusions. MRI/Brain without Contrast IMPRESSION: No acute intracranial abnormality; No acute infarct. Mild parenchymal volume loss and chronic microangiopathic changes. Reading Location: [id number]
--- NOTE | 2025-10-18 13:16 | MRI_ITS ---
PROCEDURE: MRI SPINE LUMBAR W/WO CONTRAST 10/18/2025 REASON FOR EXAM: R LEG SEVERE WEAKNESS TECHNIQUE: Procedure Code: [id number] Modality: MR Procedure: SPINE LUMBAR W/WO CONTRAST Multiplanar and multisequence images were obtained without and with intravenous gadolinium-based contrast administration. CONTRAST: Clariscan VOLUME: 15 mL COMPARISON: Lumbar spine CT earlier same day 10/18/2025. FINDINGS: 5 [id number] lumbar-type vertebrae are preserved in height, with anatomic alignment, although there is straightening of the normal lumbar lordosis. No acute fracture or subluxation. Slight dextroscoliotic curvature. Mild multilevel spondylotic changes with varying degrees of disc desiccation and narrowing, scattered endplate Schmorl's nodes, anterior osteophytosis, and hypertrophic facet arthropathy. Active degenerative changes associated with several of the Schmorl's nodes at multiple levels with associated marginal marrow edema and contrast enhancement. The conus appears normal in signal and morphology, terminating at L1. Normal appearance of the cauda equina. No significant abnormality in the visualized paravertebral or retroperitoneal soft tissues. Few bilateral small simple appearing renal cysts. L1-2: Minimal disc bulge. No significant spinal canal or foraminal narrowing. L2-3: Dorsal annular disc bulge and ligamentum flavum/facet hypertrophy results in mild spinal canal and bilateral neural foraminal narrowing. L3-4: Dorsal disc bulge and ligamentum flavum/facet hypertrophy results in mild spinal canal and bilateral neural foraminal narrowing, slightly greater on the left. L4-5: Dorsal disc bulge and ligamentum flavum/facet hypertrophy results in mild spinal canal narrowing, and mild-moderate bilateral neural foraminal narrowing. L5-S1: Dorsal disc bulge and ligamentum flavum/facet hypertrophy. No significant spinal canal narrowing. Advanced neural foraminal stenosis on the right. Minimal left foraminal narrowing. MRI/Spine Lumbar W/WO Contrast IMPRESSION: Mild multilevel spondylotic changes, notably with advanced neural foraminal haley nosis on the right at L5-S1, likely with impingement of the right L5 nerve root. No substantial spinal canal narrowing. Reading Location: [id number]
[2025-10-18 13:42] LABS: AST(SGOT) 12 U/L (<=37); Alanine Aminotransfer ALT/SGPT 13 U/L (<=46); Albumin, Serum 4.3 g/dL (3.4-4.8); Alkaline Phosphatase 67 U/L (40-129); Bilirubin, Direct 0.13 mg/dL (0.00-0.30); Globulin 2.8 g/dL (2.2-4.2)
[2025-10-18 13:55] LABS: CPK Total, Creatine Kinase 101 U/L (24-195)
--- NOTE | 2025-10-18 14:05 | CASEMGMT ---
Care Management Face to Face with patient for initial transition planning/care coordination assessment in the ED.? This resume writer introduced self and role at [facility]. Patient alert and oriented. Patient willing to participate in assessment.? Care providers, pharmacy, and demographics verified. Admitting Diagnosis: ??Weakness Other diagnosis history: ?neuropathy, hyperlipidemia, hypertension, DM type 2 PCP: ?Stan Specialists: ?None Preferred Pharmacy: [facility] pharmacy Insurance: ?Medicare Prescription Benefit: ?yes Living Will/HPOA: ?Patient denied having one completed, past charting states that he does LNOK: ?Son Living Arrangements: ?Patient lives alone in a 3 story? home.?? Reports to being independent with ADLs and IADLs.? Transportation: ?Patient drives DME: ?walker HHC: ?None SNF/Rehab: ?None Community Resources: ?None Behavioral Health History: ?denies Patient goals: Patient wishes to discharge home, denies need for home health care at this time. Patient denies any further needs or concerns at this time. Disposition Plan: admission to acute; RN CM/SW to follow for discharge planning needs that may arise. Blanca Paris, INSPECTOR AUTOMATIC TYPEWRITER, ROD STRAIGHTENER
[2025-10-18] MEDS: NIFEdipine 30 MG Tablet PO (14:55)
[2025-10-18] MEDS: Contrast Allergy Safety Check IV (14:56)
[2025-10-18 20:53] LABS: Vitamin B12 437 pg/mL (180-914)
[2025-10-18] MEDS: Insulin Glargine-YFGN 100 UNIT/ML Pen 15 UNIT SC (21:04)
[2025-10-19 02:00] VITALS: BP 121/69; PULSE 100; RESP 18; TEMP 36.6; O2SAT 94
[2025-10-19 04:51] LABS: Hematocrit 41.0 % (40-54); Hemoglobin 13.9 g/dL (13.0-16.5); Immature Granulocytes Count 0.030 X10^3/uL (0.0-0.0); Mean Corp Hgb Conc 33.9 g/dL (32-36); Mean Corpuscular Volume 88.6 fL (80-94); Mean Platelet Vol. 11.4 fl (6.2-12.0); NRBC Flagged by Analyzer 0.7 % (0-5); Platelet Count 298 K/mm3 (150-450); RBC Distribution Width CV 11.9 % (11.6-14.6); RBC Distribution Width SD 38.4 fl (35.1-43.9); Red Blood Count 4.63 M/mm3 (4.6-6.2); White Blood Count 10.5 K/mm3 (4.4-11.0)
[2025-10-19 05:13] VITALS: BMI 21.9
[2025-10-19 05:14] LABS: Anion Gap 10 (5-15); BUN 19 mg/dL (4-19); BUN/Creat Ratio 26.5 RATIO (10-20); Calcium,Total 9.2 mg/dL (7.6-11.0); Carbon Dioxide 23.1 mmol/L (21.0-32.0); Chloride 102 mmol/L (98-108); Estimated Creatinine Clearance 82.25 ml/min (50-250); Glucose 193 mg/dL (70-99); Magnesium 2.2 mg/dL (1.5-2.2); Potassium 3.5 mmol/L (3.3-5.1)
--- NOTE | 2025-10-19 07:39 | PCM.PN.HOSP ---
Reason for Visit Chief Complaint: LE weakness Subjective Subjective No significant issues overnight. Asks if his son is allowed to come visit. Denies any significant pain currently. We discussed the results of the MRIs that he had yesterday being unremarkable and pending neurological evaluation. Objective Data Objective Data Vital Signs: Vital Signs Temp Pulse Resp BP Pulse Ox O2 Del Method 97.9 F 100 18 121/69 H 94 Room Air 10/19/25 02:00 10/19/25 02:00 10/19/25 02:00 10/19/25 02:00 10/19/25 02:00 10/19/25 02:00 Oxygen Delivery Method Room Air Weight: 75.2 kg Body Mass Index (BMI) 21.9 Intake & Output: Intake and Output for Last 24 Hours 10/17/25 10/18/25 10/19/25 23:59 23:59 23:59 Intake Total 1520 / 1720 300 / 300 Balance 1520 / 1720 300 / 300 Lab / Micro Data 10/19/25 03:56 10/19/25 03:56 Labs: Laboratory Results - last 24 hr 10/18/25 11:10: WBC 8.8, RBC 4.69, Hgb 14.6, Hct 41.7, MCV 88.9, MCH 31.1, MCHC 35.0, RDW Std Deviation 38.2, RDW Coeff of María 11.9, Plt Count 310, MPV 11.5, Immature Gran % (Auto) 0.300, Neut % (Auto) 66.8, Lymph % (Auto) 18.1 L, Harris % (Auto) 10.2 H, Eos % (Auto) 3.3, Baso % (Auto) 1.3 H, Absolute Neuts (auto) 5.9, Absolute Lymphs (auto) 1.58, Nucleated RBC % 0, Sodium 135, Potassium 3.5, Chloride 96 L, Carbon Dioxide 25.6, Anion Gap 13, BUN 18, Creatinine 0.97, Estim Creat Clear Calc 70.00, Est GFR (MDRD) Non-Af 80, BUN/Creatinine Ratio 18.9, Glucose 452 H*, Hemoglobin A1c 13.6 H, Calcium 9.4, Total Bilirubin 0.25, Direct Bilirubin 0.13, AST 12, ALT 13, Alkaline Phosphatase 67, Total Creatine Kinase 101, Total Protein 7.1, Albumin 4.3, Globulin 2.8, Vitamin B12 437, TSH 0.548 10/18/25 18:14: POC Glucose 322 H 10/18/25 20:59: POC Glucose 149 H 10/19/25 03:56: WBC 10.5, RBC 4.63, Hgb 13.9, Hct 41.0, MCV 88.6, MCH 30.0, MCHC 33.9, RDW Std Deviation 38.4, RDW Coeff of María 11.9, Plt Count 298, MPV 11.4, Immature Gran % (Auto) 0.300, Neut % (Auto) 63.7, Lymph % (Auto) 22.5, Harris % (Auto) 8.6, Eos % (Auto) 4.0, Baso % (Auto) 0.9, Absolute Neuts (auto) 6.7, Absolute Lymphs (auto) 2.37, Nucleated RBC % 0.7, Sodium 136, Potassium 3.5, Chloride 102, Carbon Dioxide 23.1, Anion Gap 10, BUN 19, Creatinine 0.71, Estim Creat Clear Calc 82.25, Est GFR (MDRD) Non-Af 94, BUN/Creatinine Ratio 26.5 H, Glucose 193 H, Calcium 9.2, Phosphorus 2.9, Magnesium 2.2 10/19/25 07:02: POC Glucose 228 H Micro: Microbiology 10/18/25 13:16 Mucosa - Nose SARS-CoV-2, Influenza & RSV (PCR) - Final Radiography Diagnostic Testing: Radiology Impression Brain CT 10/18/25 11:37 IMPRESSION: 1. No evidence of acute intracranial hemorrhage, hydrocephalus, or herniation. 2. Moderate multilevel degenerative changes of the cervical spine without acute fracture or spondylolisthesis. 3. Paraseptal and centrilobular emphysematous changes in the apices. Reading Location: [id number] Cervical Spine CT 10/18/25 11:37 IMPRESSION: 1. No evidence of acute intracranial hemorrhage, hydrocephalus, or herniation. 2. Moderate multilevel degenerative changes of the cervical spine without acute fracture or spondylolisthesis. 3. Paraseptal and centrilobular emphysematous changes in the apices. Reading Location: [facility] Lumbar Spine CT 10/18/25 11:37 IMPRESSION: Degenerate changes predominantly for severe left foramina stenosis at L4-L5 with potential mass-effect upon the exiting left L4 and severe right foramina stenosis at L5-S1. No significant canal stenosis. No acute injury to the lumbar spine. Reading Location: [facility] Pelvis X-Ray 10/18/25 12:00 IMPRESSION: No acute abnormality is seen. Degenerative changes. Reading [facility] Chest [facility] 10/18/25 12:03 IMPRESSION: No acute cardiopulmonary process Reading Location: [facility] Brain MRI 10/18/25 13:16 IMPRESSION: No acute intracranial abnormality; No acute infarct. Mild parenchymal volume loss and chronic microangiopathic changes. Reading Location: [facility] Lumbar Spine MRI 10/18/25 13:16 IMPRESSION: Mild multilevel spondylotic changes, notably with advanced neural foraminal stenosis on the right at L5-S1, likely with impingement of the right L5 nerve root. No substantial spinal canal narrowing. Reading Location: [facility] Physical Exam Const alert, oriented x3, no apparent distress and average body habitus; Negative for healthy appearing or well nourished Constitutional Narrative: Older, white male, lying in bed sleeping upon my arrival but awakens easily and with startle, sits up immediately with independent bed mobility, appears comfortable, does not look toxic General Appearance: cooperative HEENT normocephalic and head/scalp atraumatic; Negative for hearing grossly normal bilaterally HEENT Narrative: Mallampati 2, no thrush Resp normal respiratory effort, no retractions, no use of accessory muscles and clear to auscultation bilaterally Resp Narrative: Severely diminished diffusely with very poor air movement throughout lung villalobos Auscultation: Negative for crackles, rhonchi or wheezes Cardio regular rate, regular rhythm, S1 normal heart sound, S2 normal heart sound, no murmurs, no rub, no gallops and no clicks GI normal to inspection, nondistended, normoactive bowel sounds, soft to palpation and non-tender GI Narrative: Abdomen is scaphoid Extremity Extremity Narrative: Clubbing present, no cyanosis, no edema, decreased lean muscle mass Neuro Neuro Narrative: Neuroexam remains the same with significant right lower extremity greater than left lower extremity weakness however bilateral lower extremity weakness is present Speech: speech normal Psych affect normal Psych Narrative: Very pleasant, slightly impulsive interacts appropriately, makes good eye contact Assessment & Plan Assessment/Plan (1) Right leg weakness: (2) Left leg weakness: (3) Debility: (4) Falls: PLAN: Plan Bilateral lower extremity weakness right greater than left - MRI of the brain and lumbar spine show chronic things but nothing acute that would cause acute weakness findings on his lumbar spine do not directly correlate with his neuroexam so I do not think his stenosis is the culprit for his acute change - Will likely need outpatient EMG and nerve conduction studies -ESR and CRP are unremarkable - PT/OT consultation pending - Will likely need placement at discharge - Case management and social work are following to assist with discharge planning - B12 and folate were within normal limits - Given unremarkable workup thus far will consult neuro to see if they have any other suggestions at this time for workup Debility/falls - Resulting from the above - PT/OT consultation pending - Case management/social work are following Uncontrolled DM-2 - A1c was greater than 13 - Thus far it seems to be compliance may be an issue as his blood sugars are better this morning than on admission - Continue basal insulin but increase from 15 to 20 units with fasting blood sugar at 193 - Continue SSI - Continue Accu-Cheks and diet as ordered - May need further up titration on insulin but will follow trends over the next 24 hours with changes Diabetic neuropathy - Continue home gabapentin Essential hypertension - Continue home antihypertensives to include HCTZ/lisinopril and nifedipine COPD/emphysema - Will plan on restarting inhalers - no signs of acute exacerbation DVT prophylaxis - Enoxaparin SQ daily CODE STATUS - DNR CCA with no intubation per discussion with patient after admission Charges/Coding Visit Charges Inpatient E&M: 46944 Subs Hosp L2
[2025-10-19 08:00] VITALS: BP 128/66; PULSE 97; RESP 18; TEMP 36.4; O2SAT 94
--- NOTE | 2025-10-19 08:47 | NEURO.CONS ---
Assessment and Plan: Neuro Assessment/Plan KELSEY YOUSSEF is a 75 M with a past medical history of chronic hip pain, HLD, severe DM2, neuropathy, being evaluated by Teleneurology for recurrent falls and worsening R leg weakness. Symptoms appear to have worsened slowly over several months and are associated with more proximal R leg weakness. Exam with a possible high L spine pathology, does not match with the L5-S1 nerve root damage. Concern for severe medium to large vessel neuropathy but unclear how his history of poorly controlled diabetes is contributing. Recommend the following workup for upper L spine radiculopathy, neuropathy, cannot rule out diabetic amyotrophy but unlikely given the time course. Plan: - MRI C, t spine and L spine w/wo - Vit b12, Vit E, folate, thiamine, copper, zinc, vit b6, heavy metal screen, hiv, RPR, SULEMA, ESR - aggressive thiamine replacement with the followinmg IV q 8hrs x3 days, then 250mg IV x 5 days, then 100mg PO May eventually need EMG, will decide after additional workup. I personally attended this patient and spent a total time of 45minutes evaluating this patient including clinical assessment, review of chart, medical history imaging, and determining appropriate treatment and workup. HPI Consult Data Date of Consult: 10/20/25 HPI Narrative HPI Narrative: KELSEY YOUSSEF, is a 75 M who presented to the emergency department [facility] on 10/18/2025 with a chief complaint of falls and severe bilateral lower extremity right greater than left weakness. Patient states has been ongoing however it sounds like it has really been worse over the last 2 to 3 weeks. He states he really has the most trouble when he is in single-leg stance to go up steps or down steps and he tends to fall towards the contralateral side or his leg will give out on him. It does not sound like he is consistently using an assistive device at home. He does not complain of any significant pain. He states there is some mild sensory changes but nothing significant. Patient has had multiple falls at home and lives alone. He states he has no significant amount of family members. Neurologic History Pt states the R hip has been a problem all summer. Then the end of summer started having falls. Pt states that any time he walks from one level to another, he ends up falling because he cannot support himself on one leg. He is also falling from just standing on both legs but that is less likely scenario. Does not pass out with his falls. Everyday he is almost fall because he lives in a 3 ana home. He then states he never falls at home, only at restaurants or stores. He has a walker but seldome uses it (only from house to car). He never falls using the walker as far as he knows. Endorses numbness in the legs, no tingling in the legs. There is constant pain in the legs per pt - usually from hip to bottom of the foot and is mostly on the front of the legs. The pain is the same and is not different with laying or walking. The pain itself is a constant throbbing pain. Both legs hurt equally - one leg is not worse than the other. No difficulty initiating urinary stream, no issues having bowel movements. He has been on gabapentin for as long as he has had diabetes - a long time. Pt sent to family doctor and examined the patient and asked that the pt should be admitted. Pt states his symptoms had gotten worse but the PCP realized how poorly his exam. No weakness in the arms, no difficulty doing things with his arm throughout the day. No diplopia, no change in speech throughout the day. Exam -? General: Laying comfortably in bed; in no acute distress. -? HENT: Normal oropharynx and mucosa. Normal external appearance of ears and nose. Exophthalmos. -? Neck: Supple, no pain or tenderness -? CV:? No peripheral edema. -? Pulmonary:? Normal respiratory effort. -? Ext: No cyanosis, edema, or deformity -? Skin: No rash. Normal palpation of skin.? -? Musculoskeletal: full range of motion; no joint tenderness. Normal digits and nails by inspection. No clubbing. -? NEURO: -? Mental Status: The patient was alert and oriented to time, place, and person. Normal recent/remote memory, concentration, and general fund of knowledge. -? Language: speech isclear.? Naming, repetition, fluency, and comprehension intact. -? Cranial Nerves: EOMI, visual villalobos full, no facial asymmetry, facial sensation intact, hearing intact, tongue midline, no evidence of atrophy or fibrillations. -? Motor: poor bilk on the R upper thigh -? Detailed strength exam as performed by the nurse/LEAH and witnessed by the physician: R L SA 4 4 EE 5 5 EF 5 5 WE 5- 4 WF Preforming Machine Operator 5 5- HF 2 4 KE 3 5 KF 3 5 DF 4 5 PF 5- 5 foot inversion 3/4 -?Detailed reflex exam as performed by the nurse/LEAH and witnessed by the physician: R L Biceps 0 1 Patellar 0 2 Ankle Babinski mute mute -? Tone: is normal and bulk is normal -? Sensation- Intact to light touch bilaterally, intact to proprioception, no length dependent dec in temp in the legs, dec in temp on the R upper thigh, no vibration sensation in the b/l LE, diminished in vibration in arms b/l -? Coordination: Ataxia on the LUE, b/l ataxia in the leg -? Gait- able to stand on his own, rhomberg +, did not test gait as very unstable [facility] Medical History Hip pain, right Low back pain at multiple sites Hearing loss, right Hearing loss, left Skin cancer Neuropathy Combined hyperlipidemia Hypertension Emphysema of lung Type 2 diabetes mellitus Home Medications ?Medication ?Instructions ?Recorded ?Last Taken ?Type lisinopril 10 1 tab PO .one daily ask pcp #90 04/27/24 Unknown Rx mg-hydrochlorothiazide 12.5 mg tabs tablet Held on 10/18/25. Instructions: out of med nifedipine 30 mg tablet,extended 30 mg PO QDAY ask pcp #90 tabs 04/27/24 Unknown Rx release Held on 10/18/25. Instructions: out of med venlafaxine 75 mg capsule,extended 75 mg PO DAILY #90 caps 01/24/25 Unknown Rx release 24 hr Held on 10/18/25. Instructions: out of med insulin glargine 100 unit/mL (3 15 unit (0.15 mL) subcut QPM #15 mL 04/26/25 Unknown Rx mL) subcutaneous pen (Lantus Solostar U-100 Insulin) Held on 10/18/25. Instructions: out of med metformin 500 mg tablet,extended 500 mg PO QDAY dm #90 tabs 07/07/25 Unknown Rx release 24 hr budesonide-formoterol HFA 160 2 puff inhalation BID #10.2 grams 08/15/25 Unknown Rx mcg-4.5 mcg/actuation aerosol inhaler Held on 10/18/25. Instructions: out of med face mask for Oxygen #1 ea 08/15/25 Unknown Rx gabapentin 400 mg capsule 400 mg PO .QID neuropathy #360 caps 08/15/25 Unknown Rx glipizide 5 mg tablet 5 mg PO QDAY #90 tabs 08/15/25 Unknown Rx Held on 10/18/25. Instructions: out of med oxygen generator #1 ea 08/15/25 Unknown Rx Allergy/AdvReac Type Severity Reaction Status Date / Time No Known Allergies Allergy Verified 10/18/25 10:55 Family History Father Heart disease Mother Heart disease Surgical History History of carpal tunnel release History of cataract Social History (Updated 10/18/25 @ 19:[address] Sherri Hood DO) household members: none housing: house Smoking Status: Current every day smoker tobacco type: cigarettes Smoking packs per day: 3 Smoking cigarettes per day: 60.0 alcohol intake: never substance use type: does not use what type of physical activity do you participate in: none Vital Signs Vital Signs Vital Signs: 10/18/25 10:55 10/18/25 10:57 10/18/25 11:24 Temperature 98.6 F Temperature Source Oral Pulse Rate 100 100 Respiratory Rate 20 H 22 H Respiratory Effort Normal Non-Labored Respiratory Depth Respiratory Pattern Normal Blood Pressure 143/79 H 129/85 H Blood Pressure Mean 100 99 Blood Pressure Source Blood Pressure Position Blood Pressure Location Pulse Ox 96 96 Oxygen Delivery Method Room Air Room Air 10/18/25 12:41 10/18/25 12:47 10/18/25 14:15 Temperature 98.6 F Temperature Source Pulse Rate 94 92 Respiratory Rate 18 18 Respiratory Effort Normal Non-Labored Respiratory Depth Normal Respiratory Pattern Normal Blood Pressure 129/84 H 136/102 H Blood Pressure Mean 99 113 Blood Pressure Source Blood Pressure Position Blood Pressure Location Pulse Ox 95 96 Oxygen Delivery Method Room Air Room Air 10/18/25 14:27 10/18/25 15:50 10/18/25 20:01 Temperature 98.5 F Temperature Source Oral Pulse Rate 55 L Respiratory Rate 20 H Respiratory Effort Normal Respiratory Depth Normal Respiratory Pattern Normal Blood Pressure 136/96 H Blood Pressure Mean 109 Blood Pressure Source Monitor Blood Pressure Position Semi-Fowlers Blood Pressure Location Right Arm Pulse Ox 92 Oxygen Delivery Method Room Air Room Air Room Air 10/18/25 22:25 10/18/25 22:27 10/19/25 02:00 Temperature 98.1 F Temperature Source Oral Pulse Rate 108 H Respiratory Rate 20 H Respiratory Effort Normal Respiratory Depth Normal Respiratory Pattern Normal Blood Pressure 114/62 Blood Pressure Mean 79 Blood Pressure Source Monitor Blood Pressure Position Semi-Fowlers Blood Pressure Location Right Arm Pulse Ox 92 92 Oxygen Delivery Method Room Air Room Air Room Air 10/19/25 02:00 10/19/25 07:37 Temperature 97.9 F Temperature Source Oral Pulse Rate 100 Respiratory Rate 18 Respiratory Effort Respiratory Depth Respiratory Pattern Blood Pressure 121/69 H Blood Pressure Mean 86 Blood Pressure Source Monitor Blood Pressure Position Sitting Blood Pressure Location Right Arm Pulse Ox 94 Oxygen Delivery Method Room Air Room Air Weight Weight: 75.2 kg Body Mass Index (BMI) 21.9 EEG Results Procedure Details EEG Procedure Details: KELSEY YOUSSEF is a 75 year old M with a past medical history of , who presents for evaluation of Electroencephalogram on DATE at TIME Lab / Micro Data 10/19/25 03:56 10/19/25 03:56 Labs: Laboratory Results - last 24 hr 10/18/25 11:10: WBC 8.8, RBC 4.69, Hgb 14.6, Hct 41.7, MCV 88.9, MCH 31.1, MCHC 35.0, RDW Std Deviation 38.2, RDW Coeff of María 11.9, Plt Count 310, MPV 11.5, Immature Gran % (Auto) 0.300, Neut % (Auto) 66.8, Lymph % (Auto) 18.1 L, Sequoyah % (Auto) 10.2 H, Eos % (Auto) 3.3, Baso % (Auto) 1.3 H, Absolute Neuts (auto) 5.9, Absolute Lymphs (auto) 1.58, Nucleated RBC % 0, Sodium 135, Potassium 3.5, Chloride 96 L, Carbon Dioxide 25.6, Anion Gap 13, BUN 18, Creatinine 0.97, Estim Creat Clear Calc 70.00, Est GFR (MDRD) Non-Af 80, BUN/Creatinine Ratio 18.9, Glucose 452 H*, Hemoglobin A1c 13.6 H, Calcium 9.4, Total Bilirubin 0.25, Direct Bilirubin 0.13, AST 12, ALT 13, Alkaline Phosphatase 67, Total Creatine Kinase 101, Total Protein 7.1, Albumin 4.3, Globulin 2.8, Vitamin B12 437, TSH 0.548 10/18/25 18:14: POC Glucose 322 H 10/18/25 20:59: POC Glucose 149 H 10/19/25 03:56: WBC 10.5, RBC 4.63, Hgb 13.9, Hct 41.0, MCV 88.6, MCH 30.0, MCHC 33.9, RDW Std Deviation 38.4, RDW Coeff of María 11.9, Plt Count 298, MPV 11.4, Immature Gran % (Auto) 0.300, Neut % (Auto) 63.7, Lymph % (Auto) 22.5, Sequoyah % (Auto) 8.6, Eos % (Auto) 4.0, Baso % (Auto) 0.9, Absolute Neuts (auto) 6.7, Absolute Lymphs (auto) 2.37, Nucleated RBC % 0.7, ESR 5, Sodium 136, Potassium 3.5, Chloride 102, Carbon Dioxide 23.1, Anion Gap 10, BUN 19, Creatinine 0.71, Estim Creat Clear Calc 82.25, Est GFR (MDRD) Non-Af 94, BUN/Creatinine Ratio 26.5 H, Glucose 193 H, Calcium 9.2, Phosphorus 2.9, Magnesium 2.2 10/19/25 07:02: POC Glucose 228 H Micro: Microbiology 10/18/25 13:16 Mucosa - Nose SARS-CoV-2, Influenza & RSV (PCR) - Final Imaging Radiology Impression Brain CT 10/18/25 11:37 IMPRESSION: 1. No evidence of acute intracranial hemorrhage, hydrocephalus, or herniation. 2. Moderate multilevel degenerative changes of the cervical spine without acute fracture or spondylolisthesis. 3. Paraseptal and centrilobular emphysematous changes in the apices. Reading Location: [facility] Cervical Spine CT 10/18/25 11:37 IMPRESSION: 1. No evidence of acute intracranial hemorrhage, hydrocephalus, or herniation. 2. Moderate multilevel degenerative changes of the cervical spine without acute fracture or spondylolisthesis. 3. Paraseptal and centrilobular emphysematous changes in the apices. Reading Location: [facility] Lumbar Spine CT 10/18/25 11:37 IMPRESSION: Degenerate changes predominantly for severe left foramina stenosis at L4-L5 with potential mass-effect upon the exiting left L4 and severe right foramina stenosis at L5-S1. No significant canal stenosis. No acute injury to the lumbar spine. Reading Location: [id number] Pelvis X-Ray 10/18/25 12:00 IMPRESSION: No acute abnormality is seen. Degenerative changes. Reading Location: [facility] Chest X-Ray 10/18/25 12:03 IMPRESSION: No acute cardiopulmonary process Reading Location: [id number] Brain MRI 10/18/25 13:16 IMPRESSION: No acute intracranial abnormality; No acute infarct. Mild parenchymal volume loss and chronic microangiopathic changes. Reading Location: [id number] Lumbar Spine MRI 10/18/25 13:16 IMPRESSION: Mild multilevel spondylotic changes, notably with advanced neural foraminal stenosis on the right at L5-S1, likely with impingement of the right L5 nerve root. No substantial spinal canal narrowing. Reading Location: [id number] Active Medications Active Medications Active Medications: Current Medications Generic Name Dose Route Start Last Admin Trade Name Freq PRN Reason Stop Dose Admin Acetaminophen 650 mg 10/18/25 14:00 Acetaminophen 325 Mg Tablet PO Q6H PRN PRN Pain 1-10 Or Fever>100.7 Albuterol Sulfate 2.5 mg 10/18/25 14:00 Albuterol 2.5 Mg/3 Ml Vial.Neb. INHALATION Q2H PRN PRN SOB &/OR WHEEZING Enoxaparin Sodium 40 mg 10/19/25 10:00 Enoxaparin 40 Mg/0.4 Ml Syringe SC DAILY ALETHEA Gabapentin 400 mg 10/18/25 14:00 10/18/25 21:03 Gabapentin 400 Mg Capsule PO 400 mg 4X/DAY ALETHEA Administration Glucagon 1 mg 10/18/25 14:00 Glucagon 1 Mg/Ml Syringe IM X1 PRN Hypoglycemia Protocol Hydrochlorothiazide 12.5 mg 10/19/25 10:00 Hydrochlorothiazide 12.5mg PO DAILY ALETHEA Dextrose 250 mls @ 0 mls/hr 10/18/25 14:00 Dextrose 10%-Water IV .Q0M PRN HYPOGLYCEMIA Protocol As Directed Sodium Chloride 250 mls @ 15 mls/hr 10/18/25 14:07 IV .[id number] PRN Additional IVPB Infusion Sodium Chloride 250 mls @ 15 mls/hr 10/18/25 14:07 IV .[id number] PRN Saline Flush Insulin Glargine 20 unit 10/19/25 21:00 Insulin Glargine-Yfgn 100 Unit/Ml Pen SC QPM ALETHEA Insulin Human Lispro 0 unit 10/18/25 16:00 10/19/25 07:04 Insulin Lispro 100 Unit/Ml Insuln.Pen SC 6 units ACHS ALETHEA Administration Protocol Iopamidol 0 ml 10/18/25 14:00 10/18/25 14:56 Contrast Allergy Safety Check IV 1 ml X1 ALETHEA Administration Lisinopril 10 mg 10/19/25 10:00 Lisinopril 10 Mg Tablet PO DAILY ALETHEA Melatonin 10 mg 10/18/25 14:00 Melatonin 10 Mg Tablet PO QHS PRN PRN INSOMNIA Nifedipine 30 mg 12/03/25 14:06 10/18/25 14:55 Nifedipine 30 Mg Tablet PO 30 mg DAILY ALETHEA Administration Ondansetron HCl 4 mg 10/18/25 14:00 Ondansetron 4 Mg/2 Ml Vial IV Q8H PRN PRN NAUSEA/VOMITING Senna/Docusate Sodium 2 tablet 10/18/25 14:00 Senna/Docusate Sodium 1 Tablet PO BID PRN PRN Constipation Sodium Chloride 10 - 40 ml 10/18/25 14:07 0.9% Saline Lock 10 Ml Syringe IV UD PRN SALINE FLUSH Venlafaxine HCl 75 mg 10/19/25 10:00 Venlafaxine Xr 75 Mg Capsule PO DAILY ALETHEA
[2025-10-19 09:21] LABS: CRP < 3.00 mg/L (0.0-3.0)
[2025-10-19] MEDS: NIFEdipine 30 MG Tablet PO (09:52)
--- NOTE | 2025-10-19 10:51 | CASEMGMT ---
Social Work SW spoke with the patient. Patient reported he has oxygen at home but only uses it if he feels he needs it. Patient reported no history of HH. Patient he lives alone but his neighbor and son help him if needed. EMMETT Robles
--- NOTE | 2025-10-19 12:45 | CASEMGMT ---
Social Work Per imaging pt negative for stroke, therefore PHQ9 not completed. EMMETT Robles
[2025-10-19 14:00] VITALS: BP 122/72; PULSE 99; RESP 18; TEMP 36.6; O2SAT 94
--- NOTE | 2025-10-19 15:41 | CASEMGMT ---
Tertiary facilities in-network with patient's insurance: [facility], [facility], [facility], [facility], [facility], , [facility], [facility]
[2025-10-19 17:52] VITALS: BP 109/63; PULSE 92; RESP 18; TEMP 36.9; O2SAT 93
[2025-10-19 18:09] LABS: HIV Nonreactive (Nonreactive)
--- NOTE | 2025-10-19 20:25 | PCM.HOSP.N ---
Hospitalist Note Pt c/p pain, especially to RLE, that is 10/10 and states that Tylenol ain't touching it. NKDA. I ordered tramadol 50mg PO q6h PRN pain 6-10. Will monitor response. Pt resting with eyes closed after receiving one dose of tramadol 50mg.
[2025-10-19] MEDS: MELATONIN 10 MG TABLET PO (20:45)
[2025-10-19 20:57] VITALS: BP 128/76; PULSE 98; RESP 18; TEMP 36.8; O2SAT 94
[2025-10-19 21:22] VITALS: O2SAT 28
[2025-10-19] MEDS: Insulin Glargine-YFGN 100 UNIT/ML Pen 20 UNIT SC (21:27)
[2025-10-20] VITALS (12 sets, daily range): BP systolic 98–139; BP diastolic 45–82; PULSE 55–88; RESP 16–22; TEMP 36.4–36.9; O2SAT 88–95; BMI 21.9
--- NOTE | 2025-10-20 07:04 | PN.HOSP_ITS ---
Reason for Visit Chief Complaint: LE weakness Subjective Subjective Patient sleeping soundly at the time of my eval. Patient did require oxygen overnight however we did come to find out he is supposed to be on oxygen but is just noncompliant. Awaiting MRI. Objective Data Objective Data Vital Signs: Vital Signs Temp Pulse Resp BP Pulse Ox O2 Del Method O2 Flow Rate 98.3 F 98 18 128/76 H 28 Venturi Mask 4 10/19/25 20:57 10/19/25 20:57 10/19/25 20:57 10/19/25 20:57 10/19/25 21:22 10/19/25 21:22 10/19/25 21:22 Oxygen Flow Rate (L/min) 4 Oxygen Delivery Method Venturi Mask Weight: 75.1 kg Body Mass Index (BMI) 21.9 Intake & Output: Intake and Output for Last 24 Hours 10/18/25 10/19/25 10/20/25 23:59 23:59 23:59 Intake Total 1520 / 1720 450 / 450 Output Total 250 / 250 250 / 250 Balance 1520 / 1720 200 / 200 -250 / -250 Lab / Micro Data 10/19/25 03:56 10/20/25 06:43 Labs: Laboratory Results - last 24 hr 10/19/25 03:56: ESR 5, C-React Prot Ext Range < 3.00 10/19/25 07:02: POC Glucose 228 H 10/19/25 11:12: POC Glucose 298 H 10/19/25 16:15: POC Glucose 287 H 10/19/25 16:48: WILBUR-1 Antibody TNP, Scl-70 Scleroderma Ab TNP, Antichromatin Antibodies TNP, Centromere B Antibody TNP, HIV 1&2 Antibody Nonreactive 10/19/25 21:24: POC Glucose 206 H 10/20/25 06:24: POC Glucose 202 H Micro: Microbiology 10/18/25 13:16 Mucosa - Nose SARS-CoV-2, Influenza & RSV (PCR) - Final Physical Exam Const no apparent distress and average body habitus; Negative for healthy appearing or well nourished Constitutional Narrative: Older, white male, lying in bed sleeping soundly, appears comfortable, nontoxic HEENT normocephalic and head/scalp atraumatic HEENT Narrative: Nasal cannula in mouth Resp normal respiratory effort, no retractions, no use of accessory muscles and No clear to auscultation bilaterally Resp Narrative: Few scattered and expiratory wheezes Auscultation: wheezes Cardio regular rate, regular rhythm, S1 normal heart sound, S2 normal heart sound, no murmurs, no rub, no gallops and no clicks GI normal to inspection, nondistended, normoactive bowel sounds, soft to palpation and non-tender GI Narrative: Abdomen is scaphoid Extremity Extremity Narrative: Clubbing present, no cyanosis, no edema, decreased lean muscle mass Neuro Neuro Narrative: Patient sleeping soundly unable to perform Psych Psych Narrative: Patient sleeping soundly Assessment & Plan Assessment/Plan (1) Right leg weakness: (2) Left leg weakness: (3) Debility: (4) Falls: PLAN: Plan Bilateral lower extremity weakness right greater than left - MRI of the brain and lumbar spine show chronic things but nothing acute that would cause acute weakness findings on his lumbar spine do not directly correlate with his neuroexam so I do not think his stenosis is the culprit for his acute change - Will likely need outpatient EMG and nerve conduction studies -ESR and CRP are unremarkable - PT/OT following was able to ambulate 180 feet with a wheeled walker - Doubt will able to be qualifying for placement but will need walker at home potentially - Case management and social work are following to assist with discharge planning - B12 and folate were within normal limits -Extensive workup pending to include MRI of the cervical and thoracic spine as recommended by neurology - Folate, thiamine, copper, zinc, B6, heavy metal screening, RPR, SULEMA, ESR and HIV were all ordered -HIV and RPR are negative the rest is pending at this time - Appreciate neuro assistance and will await further recommendations after imaging and studies are back Debility/falls - Resulting from the above - PT/OT following - Case management/social work are following Chronic hypoxic respiratory failure secondary to COPD - We discovered the patient is supposed to be on oxygen [id number] however he is not compliant - Continue supplemental oxygen as ordered by home [employer] company and encourage use after discharge Uncontrolled DM-2 - A1c was greater than 13 - Thus far it seems to be compliance may be an issue as his blood sugars are better this morning than on admission -Fasting blood sugars are still higher than ideal so will increase basal insulin from 20 to 30 units -198 this morning - Continue SSI - Continue Accu-Cheks and diet as ordered - May need further up titration on insulin but will follow trends over the next 24 hours with changes Diabetic neuropathy - Continue home gabapentin Essential hypertension - Continue home antihypertensives to include HCTZ/lisinopril and nifedipine - Blood pressure control seems to be adequate on home regimen COPD/emphysema - Will plan on restarting inhalers at discharge -Nebulizers as ordered - no signs of acute exacerbation DVT prophylaxis - Enoxaparin SQ daily CODE STATUS - DNR CCA with no intubation per discussion with patient after admission Charges/Coding Visit Charges Inpatient E&M: 62153 Subs Hosp L2
[2025-10-20 08:12] LABS: Anion Gap 10 (5-15); BUN 28 mg/dL (4-19); BUN/Creat Ratio 40.4 RATIO (10-20); Calcium,Total 9.4 mg/dL (7.6-11.0); Carbon Dioxide 26.5 mmol/L (21.0-32.0); Chloride 100 mmol/L (98-108); Estimated Creatinine Clearance 82.14 ml/min (50-250); Glucose 198 mg/dL (70-99); Potassium 3.6 mmol/L (3.3-5.1)
[2025-10-20 08:21] LABS: Syphilis Antibodies Nonreactive (Nonreactive)
[2025-10-20] MEDS: Thiamine Hydrochloride 500 MG in 0.9% Normal Saline (100mL Bag) 100 ML 200 MG IV ×3 (08:39→21:54)
[2025-10-20] MEDS: Contrast Allergy Safety Check IV (08:40)
[2025-10-20] MEDS: NIFEdipine 30 MG Tablet PO (08:45)
--- NOTE | 2025-10-20 09:02 | NURSING ---
Pt sitting up in chair, assisted by this RN to chair for breakfast. Ate 100% of breakfast. Pt had venti mask off and was talking to Reba CARSON when this RN walked in room. spo2 was 87% on RA at rest. After pt got up to chair, this RN made pt use I.S. 10 reps and reminded him to do every hour. After he used I.S venti mask reapplied. spo2 was 91% on 4L via Venti mask. This RN had pt take off again approx 10 min to eat breakfast. pt spo2 was 87% after eating breakfast and using his spo2. Venti mask back on and maintained at 4L at this time.
--- NOTE | 2025-10-20 12:33 | CASEMGMT ---
Social Work SW created in [facility] a list of halfway facilities in network w/pt's insurance, in pt's preferred geographic area, and complete w/quality and resource use data, should it be needed. MELONIE Hutson
--- NOTE | 2025-10-20 13:38 | CASEMGMT ---
Social Work SW met w/pt regarding discharge plan. Pt continues to plan to return home w/no services. Pt denies need for SNF. Pt declined referral to [facility]. Pt also declined outpt PT script. Pt states he is doing much better. Pt also has a walker at home already. SW remains available though at this time plan is for pt to return home at discharge, no homegoing needs. MELONIE Hutson
--- NOTE | 2025-10-20 14:02 | NURSING ---
Pt given ATivan 1mg Iv at this time for MRI. left the floor via bed.
--- NOTE | 2025-10-20 15:19 | MRI_ITS ---
PROCEDURE: SPINE CERVICAL W/WO CONTRAST; SPINE THORACIC W/WO CONTRAST 10/20/2025 REASON FOR EXAM: LEG WEAKNESS TECHNIQUE: Procedure Code: MRISPCWW; MRISPTWW Modality: MR Procedure: SPINE CERVICAL W/WO CONTRAST; SPINE THORACIC W/WO CONTRAST Multiplanar and multisequence images were obtained with intravenous gadolinium- based contrast administration. CONTRAST: Clariscan VOLUME: 15 mL COMPARISON: None available. FINDINGS: MRI CERVICAL SPINE: The cervical lordosis is exaggerated. The atlantooccipital and atlantoaxial joints appear normally aligned. The cervical vertebral bodies are normal in height. Mild C5-C6 retrolisthesis. The cervical bone marrow signal is within normal limits. There is no definite enhancing and marrow replacing lesion in the cervical spine. There is no definite evidence of cervical spinal cord signal abnormality. C2-C3: No significant spinal canal stenosis or neural foraminal narrowing. C3-C4: Central disc protrusion. Mild spinal canal stenosis. Limited evaluation of the neural foramina. C4-C5: Posterior disc osteophyte complex contributes to [id number]-[id number] spinal canal stenosis. Limited evaluation of the neural foramina. C5-C6: Posterior disc osteophyte complex. Mild spinal canal stenosis. Limited evaluation of the neural foramina. C6-C7: No significant spinal canal stenosis. C7-T1: No significant spinal canal stenosis or neural foraminal narrowing. MRI THORACIC SPINE: The normal thoracic kyphosis is maintained. The thoracic vertebral bodies are normal in height. The thoracic vertebral bodies are normal in alignment. Bone marrow edema at the T7-T8 endplates. There is no significant paravertebral soft tissue swelling at this level. Questionable patchy thoracic spinal cord T2/FLAIR signal hyperintensity at the T2-T3 level (series 29 image 7) and at the T8-T9 level (series 29, image 8). Curvilinear enhancement anterior to the thoracic spine likely reflects the anterior spinal artery. There is no high-grade spinal canal stenosis in the thoracic spine. T7-T8 posterior disc herniation indenting the ventral thecal sac. MRI/Spine Thoracic W/WO Contrast IMPRESSION: 1. Motion artifact limits evaluation. Consider repeat examination. 2. Nonspecific bone marrow edema at the T7-T8 endplates. Infectious etiology i s not excluded. Differential includes inflammatory degenerative changes. 3. Questionable patchy T2/FLAIR hyperintense signal abnormality versus artifact in the thoracic spine at the T2-T3 and T8-T9 levels. 4. No definite evidence of pathologic enhancement in the cervical and thoracic spine. Reading Location: [facility]
[2025-10-20] MEDS: MELATONIN 10 MG TABLET PO (21:53)
[2025-10-20] MEDS: Insulin Glargine-YFGN 100 UNIT/ML Pen 30 UNIT SC (21:54)
[2025-10-20] MEDS: 0.9% Saline Lock 10 ML Syringe IV (21:57)
[2025-10-21] VITALS (8 sets, daily range): BP systolic 104–135; BP diastolic 51–71; PULSE 77–97; RESP 16–18; TEMP 36.6–36.7; O2SAT 87–95; BMI 22.3
[2025-10-21 04:54] LABS: Hematocrit 37.3 % (40-54); Hemoglobin 12.8 g/dL (13.0-16.5); Mean Corp Hgb Conc 34.3 g/dL (32-36); Mean Corpuscular Volume 89.0 fL (80-94); Mean Platelet Vol. 10.8 fl (6.2-12.0); Platelet Count 279 K/mm3 (150-450); RBC Distribution Width CV 12.0 % (11.6-14.6); RBC Distribution Width SD 38.8 fl (35.1-43.9); Red Blood Count 4.19 M/mm3 (4.6-6.2); White Blood Count 9.5 K/mm3 (4.4-11.0)
[2025-10-21 05:31] LABS: Anion Gap 10 (5-15); BUN 27 mg/dL (4-19); BUN/Creat Ratio 42.9 RATIO (10-20); Calcium,Total 9.2 mg/dL (7.6-11.0); Carbon Dioxide 25.6 mmol/L (21.0-32.0); Chloride 102 mmol/L (98-108); Estimated Creatinine Clearance 82.14 ml/min (50-250); Glucose 68 mg/dL (70-99); Potassium 3.5 mmol/L (3.3-5.1)
[2025-10-21] MEDS: Thiamine Hydrochloride 500 MG in 0.9% Normal Saline (100mL Bag) 100 ML 200 MG IV ×2 (06:07→21:16)
[2025-10-21] MEDS: 0.9% Saline Lock 10 ML Syringe IV ×2 (06:07→21:09)
[2025-10-21] MEDS: NIFEdipine 30 MG Tablet PO (09:26)
--- NOTE | 2025-10-21 14:33 | PN.NEURO_ITS ---
Assessment and Plan: Neuro Assessment/Plan KELSEY YOUSSEF is a 75 M with a past medical history of chronic hip pain, HLD, severe DM2, neuropathy, being evaluated by Teleneurology for recurrent falls and worsening R leg weakness. Symptoms appear to have worsened slowly over several months and are associated with more proximal R leg weakness. Exam with a possible high L spine pathology, does not match with the L5-S1 nerve root damage. Concern for severe medium to large vessel neuropathy but unclear how his history of poorly controlled diabetes is contributing. Recommend the following workup for upper L spine radiculopathy, neuropathy, cannot rule out diabetic amyotrophy but unlikely given the time course. Today exam much improved as is his pain level. Could be resulted from improved glucose control or his aggressive thiamine replacement. Currently he is improving and would recommend that patient get EMG outpatient for further workup of his neurmuscular symptoms. Plan: - Pending workup: Vit E, thiamine, copper, zinc, vit b6, heavy metal screen, SULEMA - recommend adding CK to workup - continue his aggressive thiamine supplementation 250mg IV x 5 days, then 100mg PO May eventually need EMG, will decide after additional workup. I personally attended this patient and spent a total time of 45minutes evaluating this patient including clinical assessment, review of chart, medical history imaging, and determining appropriate treatment and workup. Subject: Neurology Subjective Interval History The pain in the LLE is improved and the RLE is slightly improved. Neurologic History Pt states the R hip has been a problem all summer. Then the end of summer started having falls. Pt states that any time he walks from one level to another, he ends up falling because he cannot support himself on one leg. He is also falling from just standing on both legs but that is less likely scenario. Does not pass out with his falls. Everyday he is almost fall because he lives in a 3 ana home. He then states he never falls at home, only at restaurants or stores. He has a walker but seldome uses it (only from house to car). He never falls using the walker as far as he knows. Endorses numbness in the legs, no tingling in the legs. There is constant pain in the legs per pt - usually from hip to bottom of the foot and is mostly on the front of the legs. The pain is the same and is not different with laying or walking. The pain itself is a constant throbbing pain. Both legs hurt equally - one leg is not worse than the other. No difficulty initiating urinary stream, no issues having bowel movements. He has been on gabapentin for as long as he has had diabetes - a long time. Pt sent to family doctor and examined the patient and asked that the pt should be admitted. Pt states his symptoms had gotten worse but the PCP realized how poorly his exam. No weakness in the arms, no difficulty doing things with his arm throughout the day. No diplopia, no change in speech throughout the day. Exam -? NEURO: -? Mental Status: The patient was alert and oriented to time, place, and person. Normal recent/remote memory, concentration, and general fund of knowledge. -? Language: speech isclear.? Naming, repetition, fluency, and comprehension intact. -? Cranial Nerves: EOMI, visual villalobos full, no facial asymmetry, facial sensation intact, hearing intact, tongue midline, no evidence of atrophy or fibrillations. -? Motor: poor bilk on the R upper thigh -? Detailed strength exam as performed by the nurse/LEAH and witnessed by the physician: 3 l R L SA 5 5- EE 5 5 EF 5 5 WE WF Cad Design Engineer 5 5 HF 3 5 KE 3 5 KF 4 5 DF 4 5 PF 5 5 foot inversion 4/5 -?Detailed reflex exam as performed by the nurse/LEAH and witnessed by the physician: 3 l R L Biceps 0 1 Patellar 0 2 Ankle Babinski mute mute -? Tone: is normal and bulk is normal -? Sensation- Intact to light touch bilaterally, intact to proprioception, no length dependent dec in temp in the legs, dec in temp on the R upper thigh, no vibration sensation in the b/l LE, diminished in vibration in arms b/l -? Coordination: No ataxia in the b/l UE, b/l ataxia in the leg -? Gait- able to stand on his own, rhomberg +, did not test gait as very unstable EEG Results Procedure Details EEG Procedure Details: KELSEY YOUSSEF is a 75 year old M with a past medical history of , who presents for evaluation of Electroencephalogram on DATE at TIME Objective Data Objective Data Vital Signs: Vital Signs Temp Pulse Resp BP Pulse Ox O2 Del Method O2 Flow Rate 98 F 78 18 122/68 H 95 Room Air 4 10/21/25 08:30 10/21/25 08:30 10/21/25 08:30 10/21/25 08:30 10/21/25 08:30 10/21/25 13:22 10/21/25 08:30 FiO2 4 10/21/25 08:13 Oxygen Flow Rate (L/min) 4 Oxygen Delivery Method Room Air Weight: 76.4 kg Body Mass Index (BMI) 22.3 Intake & Output: Intake and Output for Last 24 Hours 10/19/25 10/20/25 10/21/25 23:59 23:59 23:59 Intake Total 450 / 450 795 / 795 105 / 105 Output Total 250 / 250 250 / 250 430 / 430 Balance 200 / 200 545 / 545 -325 / -325 Lab / Micro Data 10/21/25 04:30 10/21/25 04:30 Labs: Laboratory Results - last 24 hr 10/20/25 16:43: POC Glucose 266 H 10/20/25 21:52: POC Glucose 235 H 10/21/25 04:30: WBC 9.5, RBC 4.19 L, Hgb 12.8 L, Hct 37.3 L, MCV 89.0, MCH 30.5, MCHC 34.3, RDW Std Deviation 38.8, RDW Coeff of María 12.0, Plt Count 279, MPV 10.8, Sodium 137, Potassium 3.5, Chloride 102, Carbon Dioxide 25.6, Anion Gap 10, BUN 27 H, Creatinine 0.64 L, Estim Creat Clear Calc 82.14, Est GFR (MDRD) Non-Af 98, BUN/Creatinine Ratio 42.9 H, Glucose 68 L, Calcium 9.2 10/21/25 06:06: POC Glucose 77 10/21/25 06:44: POC Glucose 103 10/21/25 11:30: POC Glucose 312 H Micro: Microbiology 10/18/25 13:16 Mucosa - Nose SARS-CoV-2, Influenza & RSV (PCR) - Final Radiography Diagnostic Testing: Radiology Impression Cervical Spine MRI 10/20/25 15:19 IMPRESSION: 1. Motion artifact limits evaluation. Consider repeat examination. 2. Nonspecific bone marrow edema at the T7-T8 endplates. Infectious etiology is not excluded. Differential includes inflammatory degenerative changes. 3. Questionable patchy T2/FLAIR hyperintense signal abnormality versus artifact in the thoracic spine at the T2-T3 and T8-T9 levels. 4. No definite evidence of pathologic enhancement in the cervical and thoracic spine. Reading Location: [id number] Thoracic Spine MRI 10/20/25 15:19 IMPRESSION: 1. Motion artifact limits evaluation. Consider repeat examination. 2. Nonspecific bone marrow edema at the T7-T8 endplates. Infectious etiology is not excluded. Differential includes inflammatory degenerative changes. 3. Questionable patchy T2/FLAIR hyperintense signal abnormality versus artifact in the thoracic spine at the T2-T3 and T8-T9 levels. 4. No definite evidence of pathologic enhancement in the cervical and thoracic spine. Reading Location: [id number]
--- NOTE | 2025-10-21 14:57 | CASEMGMT ---
RODNEY LOVETT NOTE: Per pt, he uses O2 @ home as needed and states he uses a mask instead of a nasal cannula d/t septum deviation, stating, My nose does not work. RODNEY LOVETT spoke w/RT, Beth, re: this and possible need of increase in O2 @ dc. Beth states, if pt uses a simple mask @ home, that he should not use less than 5 L/M. Beth spoke w/pt and states pt informed her he uses an aerosol mask @ home & states that is not a simple mask & thus does not have to minimum of 5 L/M O2. Beth, RT, aware pt will need home O2 testing done @ dc. Upon further discussion w/Beth, the following is recommended: 1) Test pt on room air at rest. If pt does not need any O2 @ rest, test pt on room air w/exertion. 2) If pt needs any O2, next test pt on Venti-mask 28% on 4 L/M. 3) If pt needs more than 28% Venti-mask @ 4 L/M, nurse to call RT to assist w/increasing O2 as needed. Nursing to document the above testing results in Home O2 testing intervention in addition to a nursing note w/more specific information re: % of Venti mask and liter flow, if O2 is needed. When O2 script is faxed to [facility], please include home O2 testing intervention documentation as well as the nursing note re: the testing. If pt qualifies for any O2, portable O2 tank to be sent home w/pt from [employer] supply. Pt to also be sent home w/the correct Venti-mask & tubing. RODNEY LOVETT reviewed the above instructions w/Zaira STEVENS, and also dental service technicianAlly, who are both scheduled tomorrow. Beth, RT, states will also notify other RT's about above for tomorrow, in case she is not available. [place] [facility] RODNEY LOVETT
--- NOTE | 2025-10-21 15:04 | PCM.DC.SUM ---
Providers Date of Admission: 10/18/25 Date of Discharge: 10/21/25 Primary Care Physician: Dr. Behzad Pierce, DO Consultations 10/18/25 19:33 Neurology [Consult: Tele-Neurology] Routine Consulting Provider: [facility] Reason for Consult: LE weakness R> L EMERGENT Consult: No MD Notified: Yes Date Notified: 10/18/25 Time Notified: 20:49 Method of Notification: [facility]sw[facility] Service Nursing Unit Staff Notify [facility] of Tele-Neurology Consult: Yes Reason For Visit: SEVERE R LEG WEAKNESS Diagnosis Discharge Diagnosis (1) Right leg weakness: Status: Acute Code(s): R29.898 - Other symptoms and signs involving the musculoskeletal system (2) Left leg weakness: Status: Acute Code(s): R29.898 - Other symptoms and signs involving the musculoskeletal system (3) Debility: Status: Acute Code(s): R53.81 - Other malaise (4) Falls: Status: Acute Code(s): R29.6 - Repeated falls Medications at Discharge Home Medications face mask for Oxygen #1 ea 08/15/25 gabapentin 400 mg capsule 400 mg PO .QID neuropathy #360 caps 08/15/25 oxygen generator #1 ea 08/15/25 OXYGEN - Supplemental ([facility] INFORMATIONAL USE ONLY) 10/20/25 budesonide-formoterol HFA 160 mcg-4.5 mcg/actuation aerosol inhaler 2 puff inhalation BID #10.2 grams 10/21/25 insulin glargine 100 unit/mL (3 mL) subcutaneous pen (Lantus Solostar U-100 Insulin) 25 unit (0.25 mL) subcut QPM #15 mL 10/21/25 lisinopril 10 mg-hydrochlorothiazide 12.5 mg tablet 1 tab PO .one daily blood pressure #30 tabs 10/21/25 metformin 500 mg tablet,extended release 24 hr 500 mg PO QDAY dm #30 tabs 10/21/25 nifedipine 30 mg tablet,extended release 30 mg PO QDAY BP #30 tabs 10/21/25 pen needle, diabetic 31 gauge x 1/4 (1st Tier Unifine Pentips) #100 ea 10/21/25 tamsulosin 0.4 mg capsule 0.4 mg PO BID #60 caps 10/21/25 thiamine HCl (vitamin B1) 250 mg tablet 250 mg PO DAILY #35 tabs 10/21/25 tramadol 50 mg tablet 50 mg PO Q6H PRN PRN Pain Score 6-10 #12 tabs 10/21/25 venlafaxine 75 mg capsule,extended release 24 hr 75 mg PO DAILY #30 caps 10/21/25 Hospital Course Procedures - (CT Brain/Cervical/Lumbar Spine/CXR/Pelvic XR/MRI Brain/Cervical/Thoracic/Lumbar Spine) Summary of Care Provided Minutes Spent on Discharge: 43 Hospital Course: KELSEY YOUSSEF, is a 75 M who presented to the emergency department [facility] on 10/18/2025 with a chief complaint of falls and severe bilateral lower extremity right greater than left weakness. Patient states has been ongoing however it sounds like it has really been worse over the last 2 to 3 weeks. He states he really has the most trouble when he is in single-leg stance to go up steps or down steps and he tends to fall towards the contralateral side or his leg will give out on him. It does not sound like he is consistently using an assistive device at home. He does not complain of any significant pain. He states there is some mild sensory changes but nothing significant. Patient has had multiple falls at home and lives alone. He states he has no significant amount of family members. Vital signs on presentation showed a temperature of 98.6, heart rate 100, respiratory 20, blood pressure was 143/79 and pulse ox was 96% on room air. CBC is unremarkable. Chemistry panel was overall unremarkable other than marked hyperglycemia with a blood glucose level of 452. Sodium was 135. Hemoglobin A1c was obtained and found to be 13.6. TSH was normal at 0.548. CT of the brain showed multiple levels of degenerative change of the cervical spine without acute fracture or spinal listhesis and no intracranial abnormalities along with paraseptal and centrilobular emphysematous changes in the apices. Cervical spine CT was overtly unremarkable. CT of the lumbar spine showed marked degenerative changes with severe left foraminal stenosis at L4-L5 and potential mass effect at the exiting L4 level with severe right foraminal stenosis at L5-S1. Given the patient's marked mobility issues and living independently with multiple falls he was admitted for further workup. Patient indicated he was out of multiple home medications therefore he was not being compliant with several of his medications. They were restarted and filled at the time of discharge. He was given a 1 month supply and instructed to follow-up with his primary care physician within the next week. He was admitted to medical floor and treated for pain as well as significant workup related to his weakness was pursued. MRI with and without contrast of the brain was performed and showed no acute findings but did show mild parenchymal volume loss and chronic microangiopathic changes consistent with his age and suspected vascular disease. Cervical and thoracic spine showed motion artifact, nonspecific bone marrow edema at T7 and T8 endplates with no associated pain and questionable T2 flair hyperintensity versus artifact at T2-T3 and T8-T9 with no definitive pathological enhancement. Lumbar spine showed mild multilevel spondylitic changes most notably advanced at the right neuroforaminal at L5-S1 with likely impingement at the right L5 nerve root. This is not consistent with exam with the weakness being at L4. Given the limited finding on imaging we pursued a metabolic workup per discussion with neurology. Sed rate and CRP were completely normal. B12 and folate were within normal limits. TSH was within normal limits. Copper, zinc, B6, heavy metal screen and SULEMA were all pending at discharge. HIV was negative. RPR was negative. Patient was evaluated by physical therapy and able to walk 180 feet with a wheeled walker. Patient does have a home walker but was not utilizing this therefore likely responsible for his falls. He had persistent weakness of the right hip flexor and will need an outpatient EMG nerve conduction for further workup however neurology felt he could be discharged home with ongoing outpatient follow-up. We did discover the patient was supposed to be on chronic oxygen he has not been compliant with this. We did an ambulatory pulse ox prior to discharge and patient will need 4 L oxygen at rest and [id number]. He is also not been compliant with his home inhalers because he ran out. I did fill prescriptions for his inhaler at the time of discharge as well. We did slightly increase his insulin as his hemoglobin A1c was greater than 13 at the time of admission. Again, he had run out of all his medications. Will discontinue his glipizide with the increase in insulin and continue his metformin. In addition to his insulin, I did write for pen needles. Patient was instructed to use his walker at all times at home to avoid further falls. Declined outpatient physical therapy. Lab pending at discharge: Copper, zinc, B6, heavy metal screen, SULEMA Recommended outpatient testing: EMG nerve conduction bilateral lower extremities Discharge diagnoses: Bilateral lower extremity weakness right greater than left etiology is unclear at this time Debility Falls Chronic hypoxic respiratory failure COPD/emphysema Uncontrolled DM-2 secondary to compliance issues Diabetic neuropathy Essential hypertension Tobacco abuse Left hip hematoma secondary to fall prior to admission Physical Exam Const alert, oriented x3, no apparent distress, average body habitus and no limitations; Negative for healthy appearing or well nourished Constitutional Narrative: Older, white male, lying in bed sleeping soundly, appears comfortable, nontoxic General Appearance: cooperative, comfortable, well kempt and well developed Exam Limitations: no limitations HEENT normocephalic and head/scalp atraumatic; Negative for hearing grossly normal bilaterally HEENT Narrative: poor dentition, Mallampati 1 Resp normal respiratory effort, no retractions, no use of accessory muscles and clear to auscultation bilaterally Resp Narrative: diffusely diminished Auscultation: wheezes; Negative for crackles or rhonchi Cardio regular rate, regular rhythm, S1 normal heart sound, S2 normal heart sound, no murmurs, no rub, no gallops and no clicks GI normal to inspection, nondistended, normoactive bowel sounds, soft to palpation and non-tender Extremity Extremity Narrative: Clubbing present, no cyanosis, no edema, decreased lean muscle mass Skin no jaundice, no petechiae and no mottling Skin Narrative: Large ecchymosis left hip from his fall developed during that his hospitalization was not present on admission likely because he just suffered the fall with the bruising in his evolution of a large hematoma Neuro moves all extremities Neuro Narrative: still weakness R LE most notable at the L4 myotome. Does not have any significant sensory issues other than his area on his left leg distal and lateral to his incision for his total knee arthroplasty. Speech: speech normal Psych affect normal Psych Narrative: Patient sleeping soundly Weight / BMI Weight Weight: 76.4 kg Body Mass Index (BMI) 22.3 ABG / Lab / Microbiology Data 10/21/25 04:30 10/21/25 04:30 Laboratory: Laboratory Results - last 24 hr 10/20/25 16:43: POC Glucose 266 H 10/20/25 21:52: POC Glucose 235 H 10/21/25 04:30: WBC 9.5, RBC 4.19 L, Hgb 12.8 L, Hct 37.3 L, MCV 89.0, MCH 30.5, MCHC 34.3, RDW Std Deviation 38.8, RDW Coeff of María 12.0, Plt Count 279, MPV 10.8, Sodium 137, Potassium 3.5, Chloride 102, Carbon Dioxide 25.6, Anion Gap 10, BUN 27 H, Creatinine 0.64 L, Estim Creat Clear Calc 82.14, Est GFR (MDRD) Non-Af 98, BUN/Creatinine Ratio 42.9 H, Glucose 68 L, Calcium 9.2 10/21/25 06:06: POC Glucose 77 10/21/25 06:44: POC Glucose 103 10/21/25 11:30: POC Glucose 312 H Microbiology: Microbiology 10/18/25 13:16 Mucosa - Nose SARS-CoV-2, Influenza & RSV (PCR) - Final Radiography Diagnostic Testing: Radiology Impression Cervical Spine MRI 10/20/25 15:19 IMPRESSION: 1. Motion artifact limits evaluation. Consider repeat examination. 2. Nonspecific bone marrow edema at the T7-T8 endplates. Infectious etiology is not excluded. Differential includes inflammatory degenerative changes. 3. Questionable patchy T2/FLAIR hyperintense signal abnormality versus artifact in the thoracic spine at the T2-T3 and T8-T9 levels. 4. No definite evidence of pathologic enhancement in the cervical and thoracic spine. Reading Location: [id number] Thoracic Spine MRI 10/20/25 15:19 IMPRESSION: 1. Motion artifact limits evaluation. Consider repeat examination. 2. Nonspecific bone marrow edema at the T7-T8 endplates. Infectious etiology is not excluded. Differential includes inflammatory degenerative changes. 3. Questionable patchy T2/FLAIR hyperintense signal abnormality versus artifact in the thoracic spine at the T2-T3 and T8-T9 levels. 4. No definite evidence of pathologic enhancement in the cervical and thoracic spine. Reading Location: [id number] D/C Instructions Discharge Activity: Return to Normal Activity and Use Walker (please use at all times as directed by PT) Weight Bearing Status: Weight bearing as tolerated DC O2, CPAP, BIPAP Needs Home O2 Discharge instructions: Yes Type of respiratory needs?: Oxygen Oxygen frequency: Continuous Continuous oxygen liters per minute: 4 DC home with Oxygen: Yes Home O2 Review: I have reviewed the oxygen testing, and the patient qualifies for home oxygen equipment and portability. The patient is mobile in the home and the community. Meaningful Use Info Meaningful Use Meaningful Use Diagnoses (Choose all that apply): None applicable Discharge Plan Admission Admit Date/Time: 10/18/25 13:11 Primary Reason for Your Visit: Leg Weakness and falls Attending Provider: Sherri Hood Primary Care Provider: Behzad Pierce Consulting Providers: Allen Avelar; Bobby Ramirez; Jazz Alejo; Karlene Martini; Jayleen Costa; Crow Rome; Mikki Urrutia; Manan Matthews; Jimmy Dennis; Walter Lopez; Anastasia Palmer; Mary Solomon; Tomy Jeffries; Trice Dick; Geovanna Almeida; Zully Armando; Baljeet Ireland; Sandra Garland; Gio Goodwin; Keesha Hood; John Wilson Instructions Additional Instructions / Restrictions: 1. Please use oxygen as previously recommended. Do not smoke while you are on your oxygen per our discussion. 2. Please f/u with your primary care doctor in the next 2 weeks. Call Thursday for an appt. 3. Please call neurologist office on Thursday to set up an outpt appt.--> see below Discharge Orders/Prescriptions Prescriptions: New tamsulosin 0.4 mg Capsule 0.4 mg PO BID Qty: 60 0RF tramadol 50 mg Tablet 50 mg PO Q6H PRN PRN (Reason: Pain Score 6-10) Qty: 12 0RF thiamine HCl (vitamin B1) 250 mg tablet 250 mg PO DAILY Qty: 35 0RF Rx Instructions: Take 2 tablets daily x 7 days then take daily insulin glargine [Lantus Solostar U-100 Insulin] 100 unit/mL (3 mL) Insulin Pen 25 unit subcut QPM Qty: 15 0RF (DME) pen needle, diabetic [1st Tier Unifine Pentips] 31 gauge x 1/4 needle See Rx Instructions .Route Qty: 100 0RF Rx Instructions: As directed Continued (DME) oxygen generator See Rx Instructions .Route .MEDSUPPLY Qty: 1 0RF Rx Instructions: Resting SaO2 is 91. gabapentin 400 mg capsule 400 mg PO .QID Qty: 360 1RF (DME) face mask for Oxygen See Rx Instructions .Route .MEDSUPPLY Qty: 1 0RF Rx Instructions: As directed (DME) OXYGEN - Supplemental ([facility] INFORMATIONAL USE ONLY) 0 .ROUTE .MEDSUPPLY Patient Comments: 2lpm venlafaxine 75 mg capsule,extended release 24hr 75 mg PO DAILY Qty: 30 0RF nifedipine 30 mg tablet extended release 30 mg PO QDAY Qty: 30 0RF lisinopril-hydrochlorothiazide 10-12.5 mg tablet 1 tab PO .one daily Qty: 30 0RF metformin 500 mg tablet extended release 24 hr 500 mg PO QDAY Qty: 30 0RF budesonide-formoterol 160-4.5 mcg/actuation HFA aerosol inhaler 2 puff inhalation BID Qty: 10.2 0RF Discontinued insulin glargine [Lantus Solostar U-100 Insulin] 100 unit/mL (3 mL) insulin pen 15 unit subcut QPM Qty: 15 1RF glipizide 5 mg tablet 5 mg PO QDAY Qty: 90 1RF Referrals / Follow Up: Behzad Pierce DO [Primary Care Provider, Internal Medicine] - Within 1 Week Yohannes Hinds MD [Non-Staff -Ordering Privileges, Neurology] - See Referral Note Referral Note: appt for milla Disposition Disposition (needs filled in before D/C Order can be placed): Home, Self Care Charges/Coding Visit Charges Inpatient E&M: 40352 Disch Hosp >30min
--- NOTE | 2025-10-21 16:06 | NURSING ---
While pt has been in hospital, pt has been using a venti mask (28%, 4L/min) due to deviated septum. Per RODNEY Nunes CM, pt has an aerosol mask at home that he uses. This RN was notifed by Manju ELDER that pt should be tested for home oxygen qualification with the venti mask at 28%, 4L/min. This RN started pt on room air at rest and pt's SpO2 was 87%. This RN applied venti mask at 28%, 4L/min at rest to achieve SpO2 of 93%. This RN then assisted pt up to ambulate in room and SpO2 was 90% with venti mask at 28%, 4L/min. Therefore, pt will be going home with portable O2 tank with venti tubing set at 28%, 4L/min. When home, pt can use home concentrator. Pt needs venti mask at 28%, 4L/min at rest and with exertion.
--- NOTE | 2025-10-21 17:03 | NURSING ---
talked with nataliya from inpatient pharmacy discussed had received discharge from Dr. Hood and [facility] discussed what scripts there were. [id number]- nataliya returned call stating they are unable to fill these scripts at this time, [facility]. Primary RN informed as she is discussing transportation for discharge with patient.
--- NOTE | 2025-10-21 17:40 | NURSING ---
Pt unable to discharge 12/6 d/t no transportation from neighbor and inpatient pharmacy being unable to fill prescriptions. Pt will try contacting neighbor again in the morning for discharge.
[2025-10-21] MEDS: Insulin Glargine-YFGN 100 UNIT/ML Pen 30 UNIT SC (21:08)
[2025-10-22 02:00] VITALS: BP 107/68; PULSE 80; RESP 18; TEMP 36.6; O2SAT 93
[2025-10-22] MEDS: Thiamine Hydrochloride 500 MG in 0.9% Normal Saline (100mL Bag) 100 ML 200 MG IV (05:09)
[2025-10-22 06:00] VITALS: BMI 22.2
--- NOTE | 2025-10-22 06:52 | DS.PCM_ITS ---
Providers Date of Admission: 10/18/25 Date of Discharge: 10/22/25 Primary Care Physician: Dr. Behzad Pierce, DO Consultations 10/18/25 19:33 Neurology [Consult: Tele-Neurology] Routine Consulting Provider: [facility] Reason for Consult: LE weakness R> L EMERGENT Consult: No MD Notified: Yes Date Notified: 10/18/25 Time Notified: 20:49 Method of Notification: Answering Service Nursing Unit Staff Notify [facility] of Tele-Neurology Consult: Yes Reason For Visit: SEVERE R LEG WEAKNESS Diagnosis Discharge Diagnosis (1) Right leg weakness: Status: Acute Code(s): R29.898 - Other symptoms and signs involving the musculoskeletal system (2) Left leg weakness: Status: Acute Code(s): R29.898 - Other symptoms and signs involving the musculoskeletal system (3) Debility: Status: Acute Code(s): R53.81 - Other malaise (4) Falls: Status: Acute Code(s): R29.6 - Repeated falls Plan Bilateral lower extremity weakness right greater than left - MRI of the brain and lumbar spine show chronic things but nothing acute that would cause acute weakness findings on his lumbar spine do not directly correlate with his neuroexam so I do not think his stenosis is the culprit for his acute change - Will likely need outpatient EMG and nerve conduction studies -ESR and CRP are unremarkable - PT/OT following was able to ambulate 180 feet with a wheeled walker - Doubt will able to be qualifying for placement but will need walker at home potentially - Case management and social work are following to assist with discharge planning - B12 and folate were within normal limits -Extensive workup pending to include MRI of the cervical and thoracic spine as recommended by neurology - Folate, thiamine, copper, zinc, B6, heavy metal screening, RPR, SULEMA, ESR and HIV were all ordered -HIV and RPR are negative the rest is pending at this time - Appreciate neuro assistance and will await further recommendations after imaging and studies are back Debility/falls - Resulting from the above - PT/OT following - Case management/social work are following Chronic hypoxic respiratory failure secondary to COPD - We discovered the patient is supposed to be on oxygen [id number] however he is not compliant - Continue supplemental oxygen as ordered by home DME company and encourage use after discharge Uncontrolled DM-2 - A1c was greater than 13 - Thus far it seems to be compliance may be an issue as his blood sugars are better this morning than on admission -Fasting blood sugars are still higher than ideal so will increase basal insulin from 20 to 30 units -198 this morning - Continue SSI - Continue Accu-Cheks and diet as ordered - May need further up titration on insulin but will follow trends over the next 24 hours with changes Diabetic neuropathy - Continue home gabapentin Essential hypertension - Continue home antihypertensives to include HCTZ/lisinopril and nifedipine - Blood pressure control seems to be adequate on home regimen COPD/emphysema - Will plan on restarting inhalers at discharge -Nebulizers as ordered - no signs of acute exacerbation DVT prophylaxis - Enoxaparin SQ daily CODE STATUS - DNR CCA with no intubation per discussion with patient after admission Medications at Discharge Home Medications face mask for Oxygen #1 ea 08/15/25 gabapentin 400 mg capsule 400 mg PO .QID neuropathy #360 caps 08/15/25 oxygen generator #1 ea 08/15/25 OXYGEN - Supplemental ([facility] INFORMATIONAL USE ONLY) 10/20/25 budesonide-formoterol HFA 160 mcg-4.5 mcg/actuation aerosol inhaler 2 puff inhalation BID #10.2 grams 10/21/25 insulin glargine 100 unit/mL (3 mL) subcutaneous pen (Lantus Solostar U-100 Insulin) 25 unit (0.25 mL) subcut QPM #15 mL 10/21/25 lisinopril 10 mg-hydrochlorothiazide 12.5 mg tablet 1 tab PO .one daily blood pressure #30 tabs 10/21/25 metformin 500 mg tablet,extended release 24 hr 500 mg PO QDAY dm #30 tabs 10/21/25 nifedipine 30 mg tablet,extended release 30 mg PO QDAY BP #30 tabs 10/21/25 pen needle, diabetic 31 gauge x 1/4 (1st Tier Unifine Pentips) #100 ea 10/21/25 tamsulosin 0.4 mg capsule 0.4 mg PO BID #60 caps 10/21/25 thiamine HCl (vitamin B1) 250 mg tablet 250 mg PO DAILY #35 tabs 10/21/25 venlafaxine 75 mg capsule,extended release 24 hr 75 mg PO DAILY #30 caps 10/21/25 tramadol 50 mg tablet 50 mg PO TID PRN pain #12 tabs 10/22/25 Hospital Course Operations None Procedures - (CT brain/CT cervical and lumbar spine/Pelvis xray/CXR/Brain MRI/Cervical, Thoracic, and Lumbar MRI) Summary of Care Provided Minutes Spent on Discharge: 43 Hospital Course: KELSEY YOUSSEF, is a 75 M who presented to the emergency department [facility] on 10/18/2025 with a chief complaint of falls and severe bilateral lower extremity right greater than left weakness. Patient states has been ongoing however it sounds like it has really been worse over the last 2 to 3 weeks. He states he really has the most trouble when he is in single-leg stance to go up steps or down steps and he tends to fall towards the contralateral side or his leg will give out on him. It does not sound like he is consistently using an assistive device at home. He does not complain of any significant pain. He states there is some mild sensory changes but nothing significant. Patient has had multiple falls at home and lives alone. He states he has no significant amount of family members. Vital signs on presentation showed a temperature of 98.6, heart rate 100, respiratory 20, blood pressure was 143/79 and pulse ox was 96% on room air. CBC is unremarkable. Chemistry panel was overall unremarkable other than marked hyperglycemia with a blood glucose level of 452. Sodium was 135. Hemoglobin A1c was obtained and found to be 13.6. TSH was normal at 0.548. CT of the brain showed multiple levels of degenerative change of the cervical spine without acute fracture or spinal listhesis and no intracranial abnormalities along with paraseptal and centrilobular emphysematous changes in the apices. Cervical spine CT was overtly unremarkable. CT of the lumbar spine showed marked degenerative changes with severe left foraminal stenosis at L4-L5 and potential mass effect at the exiting L4 level with severe right foraminal stenosis at L5-S1. Given the patient's marked mobility issues and living independently with multiple falls he was admitted for further workup. Patient indicated he was out of multiple home medications therefore he was not being compliant with several of his medications. They were restarted and filled at the time of discharge. He was given a 1 month supply and instructed to follow-up with his primary care physician within the next week. He was admitted to medical floor and treated for pain as well as significant workup related to his weakness was pursued. MRI with and without contrast of the brain was performed and showed no acute findings but did show mild parenchymal volume loss and chronic microangiopathic changes consistent with his age and suspected vascular disease. Cervical and thoracic spine showed motion artifact, nonspecific bone marrow edema at T7 and T8 endplates with no associated pain and questionable T2 flair hyperintensity versus artifact at T2-T3 and T8-T9 with no definitive pathological enhancement. Lumbar spine showed mild multilevel spondylitic changes most notably advanced at the right neuroforaminal at L5-S1 with likely impingement at the right L5 nerve root. This is not consistent with exam with the weakness being at L4. Given the limited finding on imaging we pursued a metabolic workup per discussion with neurology. Sed rate and CRP were completely normal. B12 and folate were within normal limits. TSH was within normal limits. Copper, zinc, B6, heavy metal screen and SULEMA were all pending at discharge. HIV was negative. RPR was negative. Patient was evaluated by physical therapy and able to walk 180 feet with a wheeled walker. Patient does have a home walker but was not utilizing this therefore likely responsible for his falls. He had persistent weakness of the right hip flexor and will need an outpatient EMG nerve conduction for further workup however neurology felt he could be discharged home with ongoing outpatient follow-up. We did discover the patient was supposed to be on chronic oxygen he has not been compliant with this. We did an ambulatory pulse ox prior to discharge and patient will need 4 L oxygen at rest and [id number]. He is also not been compliant with his home inhalers because he ran out. I did fill prescriptions for his inhaler at the time of discharge as well. We did slightly increase his insulin as his hemoglobin A1c was greater than 13 at the time of admission. Again, he had run out of all his medications. Will discontinue his glipizide with the increase in insulin and continue his metformin. In addition to his insulin, I did write for pen needles. Patient was instructed to use his walker at all times at home to avoid further falls. Declined outpatient physical therapy. Lab pending at discharge: Copper, zinc, B6, heavy metal screen, SULEMA Recommended outpatient testing: EMG nerve conduction bilateral lower extremities Discharge diagnoses: Bilateral lower extremity weakness right greater than left etiology is unclear at this time Debility Falls Chronic hypoxic respiratory failure COPD/emphysema Uncontrolled DM-2 secondary to compliance issues Diabetic neuropathy Essential hypertension Tobacco abuse Left hip hematoma secondary to fall prior to admission Pt was ready for d/c on 10/21 however he was unable to get a ride therefore there was a delay in discharge. Pt remains stable for d/c and will go home today. Physical Exam Const alert, oriented x3, no apparent distress, average body habitus and no limitations; Negative for healthy appearing or well nourished Constitutional Narrative: Older, white male, lying in bed sleeping soundly, appears comfortable, nontoxic General Appearance: cooperative, comfortable, well kempt and well developed Exam Limitations: no limitations HEENT normocephalic, head/scalp atraumatic and moist oral mucous membranes; Negative for hearing grossly normal bilaterally HEENT Narrative: no thrush, dentures in place Eyes Negative for conjunctivae normal Eyes Narrative: No scleral icterus Neck supple Neck Narrative: Trachea midline, neck veins are flat, no thyroid enlargement Resp normal respiratory effort, no retractions, no use of accessory muscles and clear to auscultation bilaterally Resp Narrative: diffusely diminished Auscultation: wheezes; Negative for crackles or rhonchi Cardio regular rate, regular rhythm, S1 normal heart sound, S2 normal heart sound, no murmurs, no rub, no gallops and no clicks GI normal to inspection, nondistended, normoactive bowel sounds, soft to palpation and non-tender GI Narrative: Abdomen is scaphoid Extremity Extremity Narrative: Clubbing present, no cyanosis, no edema, decreased lean muscle mass Skin no jaundice, no petechiae and no mottling Skin Narrative: Large ecchymosis left hip from his fall developed during that his hospitalization was not present on admission likely because he just suffered the fall with the bruising in his evolution of a large hematoma Neuro moves all extremities Neuro Narrative: still weakness R LE most notable at the L4 myotome. Does not have any significant sensory issues other than his area on his left leg distal and lateral to his incision for his total knee arthroplasty. Speech: speech normal Psych affect normal Weight / BMI Weight Weight: 76.204 kg Body Mass Index (BMI) 22.2 ABG / Lab / Microbiology Data 10/21/25 04:30 10/21/25 04:30 Laboratory: Laboratory Results - last 24 hr 10/21/25 11:30: POC Glucose 312 H 10/21/25 21:06: POC Glucose 233 H 10/22/25 06:21: POC Glucose 179 H Microbiology: Microbiology 10/18/25 13:16 Mucosa - Nose SARS-CoV-2, Influenza & RSV (PCR) - Final D/C Instructions Discharge Activity: Return to Normal Activity and Use Walker (at all times to avoid falling) Weight Bearing Status: Weight bearing as tolerated DC O2, CPAP, BIPAP Needs Home O2 Discharge instructions: Yes Type of respiratory needs?: Oxygen Oxygen frequency: Continuous Continuous oxygen liters per minute: 4 DC home with Oxygen: Yes Home O2 MD Review: I have reviewed the oxygen testing, and the patient qualifies for home oxygen equipment and portability. The patient is mobile in the home and the community. Meaningful Use Info Meaningful Use Meaningful Use Diagnoses (Choose all that apply): None applicable Discharge Plan Admission Admit Date/Time: 10/18/25 13:11 Primary Reason for Your Visit: Leg Weakness and falls Attending Provider: Sherri Hood Primary Care Provider: Behzad Pierce Consulting Providers: Allen Avelar; Bobby Ramirez; Jazz Alejo; Karlene Martini; Jayleen Costa; Crow Rome; Mikki Urrutia; Manan Matthews; Jimmy Dennis; Walter Lopez; Anastasia Palmer; Mary Solomon; Tomy Jeffries; Trice Dick; Geovanna Almeida; Zully Armando; Baljeet Ireland; Sandra Garland; Gio Goodwin; Keesha Hood; John Wilson Instructions Additional Instructions / Restrictions: 1. Please use oxygen as previously recommended. Do not smoke while you are on your oxygen per our discussion. 2. Please f/u with your primary care doctor in the next 2 weeks. Call Thursday for an appt. 3. Please call neurologist office on Thursday to set up an outpt appt.--> see below Discharge Orders/Prescriptions Prescriptions: New tamsulosin 0.4 mg Capsule 0.4 mg PO BID Qty: 60 0RF thiamine HCl (vitamin B1) 250 mg tablet 250 mg PO DAILY Qty: 35 0RF Rx Instructions: Take 2 tablets daily x 7 days then take daily insulin glargine [Lantus Solostar U-100 Insulin] 100 unit/mL (3 mL) Insulin Pen 25 unit subcut QPM Qty: 15 0RF (DME) pen needle, diabetic [1st Tier Unifine Pentips] 31 gauge x 1/4 needle See Rx Instructions .Route Qty: 100 0RF Rx Instructions: As directed tramadol 50 mg tablet 50 mg PO TID PRN (Reason: pain) Qty: 12 0RF Continued (DME) oxygen generator See Rx Instructions .Route .MEDSUPPLY Qty: 1 0RF Rx Instructions: Resting SaO2 is 91. gabapentin 400 mg capsule 400 mg PO .QID Qty: 360 1RF (DME) face mask for Oxygen See Rx Instructions .Route .MEDSUPPLY Qty: 1 0RF Rx Instructions: As directed (DME) OXYGEN - Supplemental ([facility] INFORMATIONAL USE ONLY) 0 .ROUTE .MEDSUPPLY Patient Comments: 2lpm venlafaxine 75 mg capsule,extended release 24hr 75 mg PO DAILY Qty: 30 0RF nifedipine 30 mg tablet extended release 30 mg PO QDAY Qty: 30 0RF lisinopril-hydrochlorothiazide 10-12.5 mg tablet 1 tab PO .one daily Qty: 30 0RF metformin 500 mg tablet extended release 24 hr 500 mg PO QDAY Qty: 30 0RF budesonide-formoterol 160-4.5 mcg/actuation HFA aerosol inhaler 2 puff inhalation BID Qty: 10.2 0RF Discontinued insulin glargine [Lantus Solostar U-100 Insulin] 100 unit/mL (3 mL) insulin pen 15 unit subcut QPM Qty: 15 1RF glipizide 5 mg tablet 5 mg PO QDAY Qty: 90 1RF Referrals / Follow Up: Behzad Pierce DO [Primary Care Provider, Internal Medicine] - Within 1 Week Yohannes Hinds MD [Non-Staff -Ordering Privileges, Neurology] - See Referral Note Referral Note: appt for milla Disposition Disposition (needs filled in before D/C Order can be placed): Home, Self Care Charges/Coding Visit Charges Inpatient E&M: 27355 Disch Hosp >30min
[2025-10-22 08:34] VITALS: PULSE 83; RESP 18; O2SAT 92
[2025-10-22 08:43] VITALS: BP 97/65; PULSE 83; RESP 18; TEMP 36.6; O2SAT 92
[2025-10-22] MEDS: NIFEdipine 30 MG Tablet PO (10:30)
[2025-10-22 12:27] VITALS: BP 150/68; PULSE 90; RESP 18; TEMP 36.6; O2SAT 92
[2025-10-23 13:08] LABS: Anti-Chromatin <0.2 AI (0.0-0.9); Anti-Jo <0.2 AI (0.0-0.9); Anti-dsDNA Ab <1 IU/mL (0-9); SJOGREN'S Anti-SS-A test 2.4 AI (0.0-0.9); SJOGREN'S Anti-SS-B test < 0.2 AI (0.0-0.9)
[2025-10-24 23:08] LABS: VITAMIN B6 10.6 ug/L (3.4-65.2)
[2025-10-26 17:08] LABS: Copper, Serum or Plasma 98 ug/dL (69-132); Vitamin B1, Thiamine 127.7 nmol/L (66.5-200.0)
== END 2025-10-22 12:39 | disposition home or self-care (01) | DRG 556 ==
LOC: ED 13:19 → PCU 13:30 → MS3 10-19 17:30
PROVIDERS: Admitting Provider Internal Medicine; Emergency Provider Student in an Organized Health Care Education/Training Program; PCP Family Medicine; Visit Provider Internal Medicine
DX: R29.898 Other symptoms and signs involving the musculoskeletal system (principal); J96.11 Chronic respiratory failure with hypoxia; Z66 Do not resuscitate; R62.7 Adult failure to thrive; Z99.81 Dependence on supplemental oxygen; E11.42 Type 2 diabetes mellitus with diabetic polyneuropathy; J43.9 Emphysema, unspecified; I10 Essential (primary) hypertension; E78.2 Mixed hyperlipidemia; F17.210 Nicotine dependence, cigarettes, uncomplicated; Z79.4 Long term (current) use of insulin; S70.02XA Contusion of left hip, initial encounter; W18.39XA Other fall on same level, initial encounter; E11.65 Type 2 diabetes mellitus with hyperglycemia; R53.81 Other malaise; R29.6 Repeated falls; Z68.23 Body mass index [BMI] 23.0-23.9, adult; Z91.148 Patient's other noncompliance with medication regimen for other reason; Z91.198 Patient's noncompliance with other medical treatment and regimen for other reason; Z79.84 Long term (current) use of oral hypoglycemic drugs; Z79.899 Other long term (current) drug therapy
CPT/HCPCS: 36415; 70450; 70551; 71045; 72125; 72131; 72156; 72157; 72158; 72170; 80048; 80076; 82175; 82525; 82550; 82607; 82962; 83036; 83655; 83735; 83825; 84100; 84207; 84425; 84443; 85025; 85027; 85652; 86140; 86225; 86235; 86703; 86780; 87631; 93005; 94640; 94668; 97116; 97162; 97166; 97530; 97535; 97802; 99252; 99285; A9575; A4216; G0463